=== PATIENT | female | born 1960 | race Caucasian/White ===

== ENCOUNTER 2017-02-05 20:22 | Emergency (ER) | payer OTHER ==
[~2017-02-05] VITALS: Ht 157.5 cm; Wt 129.4 kg
[~2017-02-05 20:22] MED LIST: LSN5 PO; LXP10 PO; NRN300 PO
[2017-02-05 20:34] VITALS: TEMP 36.6
[2017-02-05] MEDS ORDERED: SODIUM CHLORIDE 0.9% 1000ML 1,000 ML IV STA (20:58)
[2017-02-05 21:09] VITALS: Ht 157.5 cm; Wt 129.4 kg
[2017-02-05 21:37] VITALS: O2SAT 99
[2017-02-05 21:42] LABS: BASO % 1.1 %; BASO ABS # 0.06 K/uL (0-0.2); COMPLETE YES; HEMATOCRIT 42.8 % (37-47); IG% 0.2 %; LYMPH % 39.7 %; LYMPH ABS # 2.22 K/uL (1.2-3.4); MEAN CELL VOLUME 95.5 fL (80-100); MEAN CORPUSCULAR HEMOGLOBIN 30.8 pg (25-34); MEAN CORPUSCULAR HGB CONC 32.2 g/dl (32-36); MEAN PLATELET VOLUME 10.9 fL (7.4-10.4); MONO % 8.8 %; NEUT % 43.2 %; PLATELET COUNT 209 K/uL (130-400); RED BLOOD COUNT 4.48 M/uL (4.2-5.4); WHITE BLOOD COUNT 5.59 K/uL (4.8-10.8)
[2017-02-05] MEDS ORDERED: GABA-113 PO (21:50)
[2017-02-05] MEDS ORDERED: ESCI1TAB10 PO (21:50)
[2017-02-05] MEDS ORDERED: TRAZ50TA35 PO (21:50)
[2017-02-05 21:58] LABS: ALT/SGPT 30 U/L (12-78); BLOOD UREA NITROGEN 14 mg/dl (7-18); BUN/CREATININE RATIO 18.1 (10-20); CARBON DIOXIDE 30 mmol/L (21-32); CHLORIDE 104 mmol/L (98-107); CREATININE 0.77 mg/dl (0.60-1.20); GLUCOSE 84 mg/dl (70-99); POTASSIUM 4.1 mmol/L (3.5-5.1); SODIUM 141 mmol/L (136-145)
[2017-02-05 22:01] LABS: CALCIUM 8.6 mg/dl (8.5-10.1)
[2017-02-05 22:08] LABS: ALKALINE PHOSPHATASE 62 U/L (45-117); AST/SGOT 23 U/L (15-37)
--- NOTE | 2017-02-05 22:16 | DIAGNOSTIC IMAGING REPORT ---
HEAD CT NONCONTRAST CT DOSE: 773.57 mGy.cm HISTORY: Pt c/o head pain TECHNIQUE: Multiaxial CT images of the head were performed without the use of intravenous contrast. Comparison: None. Findings: The paranasal sinuses and mastoid air cells are clear. The calvarium and skull base are intact. The ventricles and sulci are within normal limits. There is no mass, hematoma, midline shift, or acute infarct. Impression: No acute intracranial abnormality. Electronically signed by: Stuart Augustin M.D. 02/05/2017 10:15 PM Dictated Date/Time: 02/05/2017 10:14 PM
[2017-02-05 22:49] VITALS: BP 174/82; PULSE 60; O2SAT 98
--- NOTE | 2017-02-05 23:28 | EMERGENCY ROOM VISIT NOTE ---
History Report prepared by [place]: Joann Tamez Under the Supervision of: Dr. Geovany Perez M.D. First contact with patient: 20:44 Chief Complaint: HEAD PAIN Stated Complaint: PRESSURE IN HEAD BEHIND EYES, EXHAUSTION, TINGLING History of Present Illness The patient is a 56 year old female who presents to the Emergency Room with complaints of persistent head pain starting 1 hour ago. She had been feeling well lately. One hour ago, she was sitting reading a magazine when she started feeling exhausted to the point of being unable to move. She also started feeling a pressure in her head around her mosque and eyes. She reports nausea. Her face around her eyes and nose and her feet started tingling. The tingling in her feet has resolved, but her face still tingles. She denies any abdominal pain. She denies any history of migraines. She has had an episode of high blood pressure in the past. Source of History: patient Onset: 1 hour ago Position: head Quality: pressure Timing: other (persistent) Associated Symptoms: + nausea, + fatigue, No abdominal pain Note: Pt reports tingling in her feet and face. Review of Systems See HPI for pertinent positives & negatives. A total of 10 systems reviewed and were otherwise negative. Past Medical & Surgical Medical Problems: (1) Hypertensive urgency (2) Obesity (3) Osteoarthritis (4) Peripheral neuropathy Surgical Problems: (1) No pertinent past surgical history Family History Asthma SISTER Cancer GRANDMOTHER (colon CA) Diabetes mellitus MOTHER GRANDFATHER Gallbladder disease Heart disease Hypertension MOTHER GRANDFATHER GRANDMOTHER Stroke MOTHER Social History Smoking Status: Never Smoker Marital Status: single Occupation Status: employed Current/Historical Medications Scheduled Escitalopram Oxalate (Lexapro), 20 MG PO HS Gabapentin (Neurontin), 600 MG PO TID Trazodone Hcl (Trazodone), 50 MG PO HS Allergies Coded Allergies: Thioamides (Verified Allergy, Intermediate, Rash, 02/05/17) Codeine (Verified Allergy, Mild, 08/08/16) Penicillins (Verified Allergy, Mild, 08/08/16) Morphine (Verified Adverse Reaction, Mild, nausea, 08/08/16) Physical Exam Vital Signs Date Time Temp Pulse Resp B/P (MAP) Pulse Ox O2 Delivery O2 Flow Rate FiO2 02/05/17 22:49 60 18 174/82 98 Room Air 02/05/17 22:26 52 152/95 60 168/100 60 174/82 02/05/17 21:37 99 Room Air 02/05/17 21:37 60 21 142/84 97 Room Air 02/05/17 21:32 95 Room Air 02/05/17 21:19 67 02/05/17 20:34 36.6 72 18 158/98 94 Room Air Physical Exam GENERAL: Patient is a healthy-appearing well-nourished, hyperventilating HEAD: Normocephalic atraumatic EYES: Ocular movements intact pupils equal and react to light OROPHARYNX mucous membranes are moist no exudates present no erythema or edema present NECK: Supple no nuchal rigidity CHEST: Good equal expansion LUNGS: Clear and equal to auscultation CARDIAC: Normal S1 and S2 ABDOMEN: Soft nontender no guarding BACK: No CVA tenderness EXTREMITIES: No pain upon palpation normal muscle strength in all groups no clubbing cyanosis or edema NEURO: Patient is following commands is answering questions appropriately. Alert and oriented x3 Cranial Nerves 2-12 grossly intact Medical Decision & Procedures ER Provider Diagnostic Interpretation: Radiology results as stated below per my review and radiologist interpretation: HEAD CT NONCONTRAST CT DOSE: 773.57 mGy.cm HISTORY: Pt c/o head pain TECHNIQUE: Multiaxial CT images of the head were performed without the use of intravenous contrast. Comparison: None. Findings: The paranasal sinuses and mastoid air cells are clear. The calvarium and skull base are intact. The ventricles and sulci are within normal limits. There is no mass, hematoma, midline shift, or acute infarct. Impression: No acute intracranial abnormality. Electronically signed by: Stuart Augustin M.D. 02/05/2017 10:15 PM Dictated Date/Time: 02/05/2017 10:14 PM Laboratory Results 02/05/17 21:20 Red Blood Count 4.48, Mean Corpuscular Volume 95.5, Mean Corpuscular Hemoglobin 30.8, Mean Corpuscular Hemoglobin Concent 32.2, Mean Platelet Volume 10.9, Neutrophils (%) (Auto) 43.2, Lymphocytes (%) (Auto) 39.7, Monocytes (%) (Auto) 8.8, Eosinophils (%) (Auto) 7.0, Basophils (%) (Auto) 1.1, Neutrophils # (Auto) 2.42, Lymphocytes # (Auto) 2.22, Monocytes # (Auto) 0.49, Eosinophils # (Auto) 0.39, Basophils # (Auto) 0.06 02/05/17 21:20 Test 02/05/17 21:20 02/05/17 21:35 White Blood Count 5.59 K/uL (4.8-10.8) Red Blood Count 4.48 M/uL (4.2-5.4) Hemoglobin 13.8 g/dL (12.0-16.0) Hematocrit 42.8 % (37-47) Mean Corpuscular Volume 95.5 fL (80-100) Mean Corpuscular Hemoglobin 30.8 pg (25-34) Mean Corpuscular Hemoglobin Concent 32.2 g/dl (32-36) Platelet Count 209 K/uL (130-400) Mean Platelet Volume 10.9 fL (7.4-10.4) Neutrophils (%) (Auto) 43.2 % Lymphocytes (%) (Auto) 39.7 % Monocytes (%) (Auto) 8.8 % Eosinophils (%) (Auto) 7.0 % Basophils (%) (Auto) 1.1 % Neutrophils # (Auto) 2.42 K/uL (1.4-6.5) Lymphocytes # (Auto) 2.22 K/uL (1.2-3.4) Monocytes # (Auto) 0.49 K/uL (0.11-0.59) Eosinophils # (Auto) 0.39 K/uL (0-0.5) Basophils # (Auto) 0.06 K/uL (0-0.2) RDW Standard Deviation 47.7 fL (36.4-46.3) RDW Coefficient of Variation 13.7 % (11.5-14.5) Immature Granulocyte % (Auto) 0.2 % Immature Granulocyte # (Auto) 0.01 K/uL (0.00-0.02) Anion Gap 7.0 mmol/L (3-11) Est Creatinine Clear Calc Drug Dose 106.6 ml/min Estimated GFR () 100.7 Estimated GFR (Non- 86.9 BUN/Creatinine Ratio 18.1 (10-20) Calcium Level 8.6 mg/dl (8.5-10.1) Total Bilirubin 0.3 mg/dl (0.2-1) Direct Bilirubin < 0.1 mg/dl (0-0.2) Aspartate Amino Transf (AST/SGOT) 23 U/L (15-37) Alanine Aminotransferase (ALT/SGPT) 30 U/L (12-78) Alkaline Phosphatase 62 U/L (45-117) Total Protein 7.0 gm/dl (6.4-8.2) Albumin 3.4 gm/dl (3.4-5.0) Thyroid Stimulating Hormone (TSH) 1.350 uIu/ml (0.300-4.500) Bedside Glucose 92 mg/dl (70-90) Labs reviewed by ED physician. Medications Administered Medications (Trade) Dose Ordered Sig/Angela Route Start Time Stop Time Status Last Admin Dose Admin Sodium Chloride 1,000 ml @ 999 mls/hr Q1H1M STAT IV 02/05/17 20:58 02/05/17 21:58 DC 02/05/17 20:40 999 MLS/HR ECG Indication: weakness Rate (beats per minute): 62 Rhythm: normal sinus Findings: no acute ischemic change, no ectopy ED Course 2045: Past medical records reviewed. The patient was evaluated in room A4B. A complete history and physical examination was performed. 2057: NSS 1000 ml @ 999 mls/hr IV. 2302: Upon reexamination the patient is resting comfortably. I discussed results and treatment plan with the patient. She verbalizes agreement and understanding. The patient is ready for discharge. Medical Decision Differential diagnosis: Etiologies such as infections, reactive airway disease, pneumonia, pneumothorax , COPD, CHF, cardiac ischemia, pulmonary embolism, musculoskeletal, gastrointestinal, as well as others were entertained. Medication Reconciliation: I attest that I have personally reviewed the patient' s current medication list Blood Pressure Screening: Patient was found to have an elevated blood pressure and was referred to their primary care doctor for recheck and further treatment This is a 56-year-old female who had sudden onset of headache with aura. The patient does not have a history of migraines in the past. She is also complaining of bilateral leg numbness which I believe is from hyperventilation. The patient was content in the emergency department and given a normal saline bolus. She has a normal CAT scan of the head as well as normal CBC. I do believe that the patient is well enough to be discharged home for follow-up with neurology. Patient was in agreement with treatment plan. Impression Primary Impression: Migraine Scribe Attestation The scribe's documentation has been prepared under my direction and personally reviewed by me in its entirety. I confirm that the note above accurately reflects all work, treatment, procedures, and medical decision making performed by me. Departure Information Dispostion Home / Self-Care Referrals Luis Eduardo Armstrong III, M.D. (PCP) Forms HOME CARE DOCUMENTATION FORM, IMPORTANT VISIT INFORMATION, WORK / SCHOOL INSTRUCTIONS Patient Instructions Headache Migraine Triggers Prevent, Headaches Migraine and Tension, Hypertension Control, Migraine Stages Tx, My [facility] Additional Instructions You were found to have an elevated blood pressure today (>120 sytolic or >90 diastolic). Per medicare guidelines, you need to follow up with this blood pressure screening with your Primary Care Physician (PCP). For a new PCP call [phone]. Follow up with DR Patel's office You have been examined and treated today on an emergency basis only. This is not a substitute for, or an effort to provide, complete comprehensive medical care. It is impossible to recognize and treat all injuries or illnesses in a single emergency department visit. It is therefore important that you follow up closely with Dr Armstrong. Call as soon as possible for an appointment. Thank you for your time and consideration. I look forward to speaking with you again soon. Please don't hesitate to call us if you have any questions. Problem Qualifiers Primary Impression: Migraine Migraine type: with aura Status migrainosus presence: without status migrainosus Intractability: not intractable Qualified Codes: G43.109 - Migraine with aura, not intractable, without status migrainosus
== END 2017-02-05 23:24 | disposition home or self-care (01) ==
LOC: C.EDB 20:25 → C.EDA 23:24
DX: G43.109 Migraine with aura, not intractable, without status migrainosus (principal); R53.83 Other fatigue; R11.0 Nausea; R20.2 Paresthesia of skin; I10 Essential (primary) hypertension; M19.90 Unspecified osteoarthritis, unspecified site; Z79.899 Other long term (current) drug therapy; Z82.3 Family history of stroke; Z82.49 Family history of ischemic heart disease and other diseases of the circulatory system; Z82.5 Family history of asthma and other chronic lower respiratory diseases; Z83.3 Family history of diabetes mellitus; Z83.79 Family history of other diseases of the digestive system

== ENCOUNTER 2021-10-17 13:14 | Inpatient (IN) ==
[2021-10-17 14:46] LABS: Basophils # (auto) 0.04 K/uL (0-0.2); Basophils % (auto) 0.5 %; Eosinophils # (auto) 0.58 K/uL (0-0.5); Eosinophils % (auto) 7.6 %; Hemoglobin 13.1 g/dL (12.0-16.0); Immature Granulocytes # (auto) 0.01 K/uL (0.00-0.02); Immature Granulocytes % (auto) 0.1 %; Lymphocytes # (auto) 1.55 K/uL (1.2-3.4); Lymphocytes % (auto) 20.3 %; Mean Corpuscular Hemoglobin 28.6 pg (25-34); Mean Corpuscular Hgb Conc 31.2 g/dL (32-36); Mean Corpuscular Volume 91.7 fL (80-100); Mean Platelet Volume 11.2 fL (7.4-10.4); Monocytes # (auto) 0.61 K/uL (0.11-0.59); Neutrophils # (auto) 4.85 K/uL (1.4-6.5); Neutrophils % (auto) 63.5 %; Platelet Count 228 K/uL (130-400); RDW Coefficient of Variation 15.1 % (11.5-14.5); Red Blood Count 4.58 M/uL (4.2-5.4); White Blood Count 7.64 K/uL (4.8-10.8)
[2021-10-17 14:59] LABS: D Dimer 1210 ug/L FEU (0-500)
[2021-10-17 15:09] LABS: Alanine Aminotransferase 17 U/L (7-52); Albumin Globulin Ratio 1.4 (0.9-2); Alkaline Phosphatase 62 U/L (34-104); Anion Gap 6 (3-11); Aspartate Aminotransferase 22 U/L (13-39); BUN Creatinine Ratio 30.8 (10-20); Bilirubin,Total 0.7 mg/dl (0.2-1.0); Blood Urea Nitrogen 20 mg/dl (6-23); Calcium 8.7 mg/dl (8.5-10.1); Carbon Dioxide 32 mmol/L (21-32); Chloride 102 mmol/L (98-107); Creatinine Clr Calc Pharmacy 122.5 ml/min; Est GFR (African American) 111.8 ml/min; Est GFR (Non-African American) 96.5 ml/min; Globulin 2.8 gm/dl (2.5-4.0); Glucose 92 mg/dl (70-99(Fasting)); Magnesium 2.1 mg/dl (1.7-2.4); Potassium 3.8 mmol/L (3.5-5.1); Sodium 140 mmol/L (136-145); Total Protein 6.8 gm/dl (6.0-8.3); Troponin I < 0.03 ng/ml (0-0.04)
--- NOTE | 2021-10-17 15:45 | Emergency Department Note ---
History of Present Illness General Chief complaint: Shortness of Breath/Dyspnea Stated complaint: SOB,SORETHROAT,COUGH,BODYACHES,VERY TIRED Time Seen by Provider: 10/17/21 13:37 Source: patient Mode of arrival: ambulatory Limitations: no limitations History of Present Illness Provider complaint: Shortness of breath, chest pain, leg swelling Onset (ago): day(s) 4 Maximum Pain Intensity: 2 Associated symptoms: + chest pain, + cough, + fever/chills, + headaches, + malaise, + nausea/vomiting and + shortness of breath; no loss of appetite or no syncope This is a 61-year-old female who was referred by her PCP to the emergency room for additional testing who presents complaining of shortness of breath, chest pain, and leg swelling. Patient states she has been more short of breath and more fatigued over the course of the last 2 to 3 weeks. She states over the last 2 to 3 days she noticed worsening left lower extremity swelling, increased shortness of breath particular with exertion, and developed accompanying chest pain/pressure. Patient denies any prior pulmonary history including asthma or COPD, no history of tobacco abuse. Patient denies any cardiac history. She denies any change in medications. Patient states she does have some chronic lower extremity edema due to her body habitus, states in the last few days she noticed that the left lower extremity was worse. She denies any trauma or injury. Patient states she has had intermittent fevers, and a intermittent mild cough. Patient denies any sick contacts. She states when she presented to her family doctor's office, they were concerned for possible DVT or PE and also concern for Covid and referred her to the emergency room for additional testing. Patient initially seen in the waiting room as there were no available beds in the main ER. Pt seen during a time of high acuity and national emergency pandemic while wearing PPE. Home Medications Medication Instructions Recorded Confirmed Type baclofen 10 mg tablet 10 mg PO BID 08/18/18 10/17/21 History furosemide 20 mg tablet 20 mg PO QAM 08/18/18 10/17/21 History ondansetron 4 mg disintegrating 4 mg PO TID PRN 08/18/18 10/17/21 History tablet trazodone 50 mg tablet 50 mg PO HS 08/18/18 10/17/21 History brimonidine 0.2 % eye drops 1 drp OPB BID 03/03/20 02/17/22 History celecoxib 100 mg capsule 100 mg PO QAM 11/01/19 10/17/21 History dorzolamide 22.3 mg-timolol 6.8 1 drp OPB BID 11/01/19 10/17/21 History mg/mL eye drops duloxetine 60 mg capsule,delayed 60 mg PO QAM 11/01/19 10/17/21 History release latanoprost 0.005 % eye drops 1 drp OPB HS 11/01/19 10/17/21 History omeprazole 20 mg capsule,delayed 20 mg PO DAILY 11/01/19 10/17/21 History release pregabalin 50 mg capsule (Lyrica) 50 mg PO BID 11/01/19 10/17/21 History acetaminophen 650 mg 1,300 mg PO Q8H PRN 10/17/21 10/17/21 History tablet,extended release aspirin 81 mg tablet,delayed 81 mg PO BID 10/17/21 10/17/21 History release (Aspirin Low Dose) Allergies Allergy/AdvReac Type Severity Reaction Status Date / Time Penicillins Allergy Intermediate Difficulty Verified 10/17/21 15:59 Breathing codeine Allergy Mild NAUSEATED Verified 10/17/21 15:59 morphine AdvReac Mild nausea Verified 10/17/21 15:59 Thioamides Allergy Intermediate Rash Uncoded 10/17/21 15:59 Past Med/Surg History Medical History (Updated 10/17/21 @ 19:01 by Amy Vega DO) Anxiety Cardiac murmur Depression Eye pressure Hypertension Hyperthyroidism HISTORY OF Migraine Osteoarthritis Peripheral neuropathy Transient ischemic attack (TIA) "I THINK I HAVE HAD MINI STROKES BECAUSE I HAVE MEMORY PROBLEMS" LAST EPISODE 6 MONTHS AGO (NOT DX) Surgical History Family history of reaction to anesthesia PONV, SLOW TO WAKE UP No significant past surgical history Family History Mother Family history of diabetes mellitus Grandmother (Maternal) Family hx of colon cancer Social History Smoking Status: Never smoker Second Hand Exposure: Yes; Hx Alcohol Use: No Hx Substance Use: No Preferred Language: Welsh Communication Ability: Effective Applications Architect Required: No Beliefs That Will Affect Care: None marital status: Single Current Living Situation: Alone Current Living Situation Comment: ROOMMATE Feels Safe at Home: Yes Safety Concerns: Feels Safe At This Time Assistive Devices: None Assistive Devices Comment: does not use CPAP Review of Systems A total of 10 systems reviewed and were otherwise negative All systems reviewed & are unremarkable except as noted in HPI & below Physical Exam Vital Signs Vital Signs - 24 hr 10/17/21 13:15 10/17/21 15:52 10/17/21 16:17 Temperature 36.7 C Temperature Source Temporal Artery Scan Pulse Rate 76 Pulse Rate [Exercises] Pulse Rate [Recovery] Pulse Rate [Right Finger] 68 Respiratory Rate 20 22 Respiratory Rate [Exercises] Respiratory Rate [Recovery] Respiratory Effort / Characteristics Non-Labored Spontaneous Non-Labored Spontaneous Respiratory Depth Normal Normal Respiratory Pattern Regular Blood Pressure 151/96 H Blood Pressure [Right Arm] 154/99 H Blood Pressure Mean 114 Blood Pressure Mean [Right Arm] 117 Pulse Oximetry 95 91 Pulse Oximetry [Exercises] Pulse Oximetry [Recovery] Oxygen Delivery Method Room Air Room Air Room Air Sepsis Recent Fever Within 48 Hours No Sepsis New/Unexplained Change in Mental Status No Sepsis Action Taken by Nursing No Action Required 10/17/21 18:53 Temperature Temperature Source Pulse Rate Pulse Rate [Exercises] 88 Pulse Rate [Recovery] 89 Pulse Rate [Right Finger] Respiratory Rate Respiratory Rate [Exercises] 20 Respiratory Rate [Recovery] 22 Respiratory Effort / Characteristics Respiratory Depth Respiratory Pattern Blood Pressure Blood Pressure [Right Arm] Blood Pressure Mean Blood Pressure Mean [Right Arm] Pulse Oximetry Pulse Oximetry [Exercises] 93 Pulse Oximetry [Recovery] 86 L Oxygen Delivery Method Room Air Sepsis Recent Fever Within 48 Hours Sepsis New/Unexplained Change in Mental Status Sepsis Action Taken by Nursing GENERAL: alert, well appearing, well nourished, no distress, non-toxic EYE EXAM: normal conjunctiva, PERRL and EOM's grossly intact OROPHARYNX: no exudate, no erythema, lips, buccal mucosa, and tongue normal and mucous membranes are moist NECK: supple, no nuchal rigidity, no adenopathy, non-tender LUNGS: Clear to auscultation. Normal chest wall mechanics, no w/r/r, no tachypnea, no retractions, no increased work of breathing HEART: no murmurs, S1 normal and S2 normal ABDOMEN: abdomen soft, non-tender, normo-active bowel sounds, no masses, no rebound or guarding. BACK: Back is symmetrical on inspection and there is no deformity, no midline tenderness, no CVA tenderness. SKIN: no rashes and no bruising UPPER EXTREMITIES: upper extremities are grossly normal. FROM, nml pulses b/l. LOWER EXTREMITIES: 1+ b/l L>R pitting edema. FROM, nml pulses b/l. Increased erythema noted to distal left lower extremity with small healing wound on the distal anterior aspect. No significant increased warmth or tenderness. NEURO EXAM: Normal sensorium, cranial nerves II-XII grossly intact, normal speech, no gross weakness of arms, no gross weakness of legs. Gross sensation intact. Course Course 1751: Patient updated on results. Will start on oral antibiotics and perform ambulatory pulse ox. 1850: On attempts at sitting up and walking into the bathroom, patient's oxygenation dropped to 85% and she appeared markedly dyspneic and tachypneic. Administered Medications Acetaminophen (Acetaminophen 325 Mg Tab) 650 mg PO Q4H PRN PRN Reason: Pain or Fever Stop: 11/16/21 23:35 Last Admin: 10/18/21 20:17 Dose: 650 mg Documented by: [id number] Admin: 10/18/21 16:46 Dose: 650 mg Documented by: [id number] Admin: 10/18/21 01:32 Dose: 650 mg Documented by: [id number] Aspirin (Aspirin 81 Mg Ectab) 81 mg PO BID [facility] Stop: 11/16/21 23:35 Last Admin: 10/18/21 20:13 Dose: 81 mg Documented by: [id number] Admin: 10/18/21 07:41 Dose: 81 mg Documented by: [id number] Admin: 10/18/21 01:25 Dose: 81 mg Documented by: [id number] Baclofen (Baclofen 10 Mg Tab) 10 mg PO BID [facility] Stop: 11/16/21 23:35 Last Admin: 10/18/21 20:10 Dose: 10 mg Documented by: [id number] Admin: 10/18/21 07:41 Dose: 10 mg Documented by: [id number] Admin: 10/18/21 01:25 Dose: 10 mg Documented by: [id number] Brimonidine Tartrate (Brimonidine Tartrate 0.2% 5ml) 1 drops OPB BID ANA Stop: 11/16/21 23:34 Last Admin: 10/18/21 20:11 Dose: 1 drops Documented by: [id number] Admin: 10/18/21 07:40 Dose: 1 drops Documented by: [id number] Admin: 10/18/21 01:24 Dose: 1 drops Documented by: [id number] Dorzolamide/Timolol (Dorzolamide/Timolol 22.3/6.8mg/Ml 10 Ml Btl) 1 drops OPB BID ANA Stop: 11/16/21 23:35 Last Admin: 10/18/21 20:11 Dose: 1 drops Documented by: [id number] Admin: 10/18/21 07:40 Dose: 1 drops Documented by: [id number] Admin: 10/18/21 01:25 Dose: 1 drops Documented by: [id number] Doxycycline Hyclate (Doxycycline Hyclate 100 Mg Cap) 100 mg PO BID ANA Stop: 10/28/21 12:14 Last Admin: 10/18/21 20:13 Dose: 100 mg Documented by: [id number] Admin: 10/18/21 13:12 Dose: 100 mg Documented by: [id number] Duloxetine HCl (Duloxetine Hcl 60 Mg Cap) 60 mg PO QAM ANA Stop: 11/17/21 08:59 Last Admin: 10/18/21 07:41 Dose: 60 mg Documented by: [id number] Enoxaparin Sodium (Enoxaparin Inj 40 Mg/0.4 Ml Syr) 40 mg SQ Q12H [facility] Stop: 11/17/21 00:00 Last Admin: 10/18/21 23:10 Dose: 40 mg Documented by: [id number] Admin: 10/18/21 12:16 Dose: 40 mg Documented by: [id number] Admin: 10/18/21 01:27 Dose: 40 mg Documented by: [id number] Furosemide (Furosemide 20 Mg Tab) 20 mg PO QAM ANA Stop: 11/17/21 08:59 Last Admin: 10/18/21 07:41 Dose: 20 mg Documented by: [id number] Clindamycin Phosphate 600 mg/ (Dextrose) 54 mls @ 100 mls/hr IV Q8H ANA Stop: 10/24/21 20:15 Last Admin: 10/19/21 05:17 Dose: 100 mls/hr Documented by: [id number] Infusion: 10/18/21 20:45 Dose: 0 mls/hr Documented by: [id number] Admin: 10/18/21 20:10 Dose: 100 mls/hr Documented by: [id number] Infusion: 10/18/21 12:53 Dose: 0 mls/hr Documented by: [id number] Admin: 10/18/21 12:16 Dose: 100 mls/hr Documented by: [id number] Infusion: 10/18/21 05:39 Dose: 0 mls/hr Documented by: [id number] Admin: 10/18/21 05:06 Dose: 100 mls/hr Documented by: [id number] Infusion: 10/17/21 21:14 Dose: 0 mls/hr Documented by: [id number] Admin: 10/17/21 20:38 Dose: 100 mls/hr Documented by: [id number] Ipratropium [place] (Ipratropium [place] Neb Soln 0.02% 2.5 Ml Vial) 0.5 mg INH Q6R ANA Stop: 11/17/21 11:59 Last Admin: 10/19/21 01:28 Dose: Not Given Documented by: [id number] Admin: 10/18/21 19:18 Dose: 0.5 mg Documented by: [id number] Admin: 10/18/21 12:44 Dose: 0.5 mg Documented by: [id number] Latanoprost (Latanoprost 0.005% Op Soln 2.5 Ml Btl) 1 drops OPB HS ANA Stop: 11/16/21 23:35 Last Admin: 10/18/21 20:11 Dose: 1 drops Documented by: [id number] Admin: 10/18/21 01:26 Dose: 1 drops Documented by: [id number] Levalbuterol HCl (Levalbuterol 1.25mg/0.5ml Neb) 1.25 mg INH Q6R ANA Stop: 11/17/21 11:59 Last Admin: 10/19/21 01:29 Dose: Not Given Documented by: [id number] Admin: 10/18/21 19:18 Dose: 1.25 mg Documented by: [id number] Admin: 10/18/21 12:44 Dose: 1.25 mg Documented by: [id number] Pantoprazole Sodium (Pantoprazole 40 Mg Tab) 40 mg PO DAILY ANA Stop: 11/17/21 08:59 Last Admin: 10/18/21 07:41 Dose: 40 mg Documented by: [id number] Prednisone (Prednisone 20 Mg Tab) 40 mg PO DAILY ANA Stop: 11/17/21 12:14 Last Admin: 10/18/21 13:11 Dose: 40 mg Documented by: [id number] Pregabalin (Pregabalin 50 Mg Cap) 50 mg PO BID ANA Stop: 11/16/21 23:35 Last Admin: 10/18/21 20:11 Dose: 50 mg Documented by: [id number] Admin: 10/18/21 07:41 Dose: 50 mg Documented by: [id number] Admin: 10/18/21 01:26 Dose: 50 mg Documented by: [id number] Trazodone HCl (Trazodone Hcl 50 Mg Tab) 50 mg PO HS ANA Stop: 11/16/21 23:35 Last Admin: 10/18/21 20:11 Dose: 50 mg Documented by: [id number] Admin: 10/18/21 01:27 Dose: 50 mg Documented by: [id number] Discontinued Medications Ioversol (Optiray 320 125ml) 117 ml IV ONCE ONE Stop: 10/17/21 16:10 Last Admin: 10/17/21 16:12 Dose: 117 ml Documented by: [id number] Trimethoprim/Sulfamethoxazole (Sulfamethoxazole/Trimethoprim Ds 800/160mg Tab) 1 tab PO NOW ONE Stop: 10/17/21 17:41 Last Admin: 10/17/21 19:33 Dose: 1 tab Documented by: [id number] Medical Decision Making Differential Diagnosis Differential diagnoses includes but is not limited to pneumonia, bronchitis, COPD/Asthma exacerbation, pneumothorax, pulmonary embolism, congestive heart failure, acute coronary syndrome Medical Records Attestation: I reviewed the patient's medical records. Home Medications Current Medication List: was personally reviewed by me Laboratory Data Attestation: I reviewed the patient's lab results. Result diagrams: 10/18/21 05:46 10/18/21 07:14 Lab Results 10/17/21 10/17/21 10/17/21 Range/Units 14:24 14:24 14:24 WBC 7.64 (4.8-10.8) K/uL RBC 4.58 (4.2-5.4) M/uL Hgb 13.1 (12.0-16.0) g/dL Hct 42.0 (37-47) % MCV 91.7 (80-100) fL MCH 28.6 (25-34) pg MCHC 31.2 L (32-36) g/dL RDW Std Deviation 51.0 H (36.4-46.3) fL RDW Coeff of Allison 15.1 H (11.5-14.5) % Plt Count 228 (130-400) K/uL MPV 11.2 H (7.4-10.4) fL Immature Gran % (Auto) 0.1 % Neut % (Auto) 63.5 % Lymph % (Auto) 20.3 % [place] % (Auto) 8.0 % Eos % (Auto) 7.6 % Baso % (Auto) 0.5 % Neut # (Auto) 4.85 (1.4-6.5) K/uL Lymph # (Auto) 1.55 (1.2-3.4) K/uL [place] # (Auto) 0.61 H (0.11-0.59) K/uL Eos # (Auto) 0.58 H (0-0.5) K/uL Baso # (Auto) 0.04 (0-0.2) K/uL Immature Gran # (Auto) 0.01 (0.00-0.02) K/uL D-Dimer 1210 H* (0-500) ug/L FEU Sodium 140 (136-145) mmol/L Potassium 3.8 (3.5-5.1) mmol/L Chloride 102 (98-107) mmol/L Carbon Dioxide 32 (21-32) mmol/L Anion Gap 6 (3-11) BUN 20 (6-23) mg/dl Creatinine 0.65 (0.6-1.2) mg/dl Est Cr Clr Drug Dosing 122.5 ml/min Est GFR ( Amer) 111.8 ml/min Est GFR (Non-Af Amer) 96.5 ml/min BUN/Creatinine Ratio 30.8 H (10-20) Glucose 92 (70-99(Fasting)) mg/dl Calcium 8.7 (8.5-10.1) mg/dl Magnesium 2.1 (1.7-2.4) mg/dl Total Bilirubin 0.7 (0.2-1.0) mg/dl AST 22 (13-39) U/L ALT 17 (7-52) U/L Alkaline Phosphatase 62 (34-104) U/L Troponin I < 0.03 (0-0.04) ng/ml Total Protein 6.8 (6.0-8.3) gm/dl Albumin 4.0 (3.4-5.0) gm/dl Globulin 2.8 (2.5-4.0) gm/dl Albumin/Globulin Ratio 1.4 (0.9-2) TSH (0.300-4.500) uIu/ml SARS-CoV-2 (PCR) (Negative) Influenza Type A (PCR) (Neg) Influenza Type B (PCR) (Neg) RSV (RT-PCR) (Neg) 10/17/21 10/17/21 Range/Units 14:24 15:50 WBC (4.8-10.8) K/uL RBC (4.2-5.4) M/uL Hgb (12.0-16.0) g/dL Hct (37-47) % MCV (80-100) fL MCH (25-34) pg MCHC (32-36) g/dL RDW Std Deviation (36.4-46.3) fL RDW Coeff of Allison (11.5-14.5) % Plt Count (130-400) K/uL MPV (7.4-10.4) fL Immature Gran % (Auto) % Neut % (Auto) % Lymph % (Auto) % [place] % (Auto) % Eos % (Auto) % Baso % (Auto) % Neut # (Auto) (1.4-6.5) K/uL Lymph # (Auto) (1.2-3.4) K/uL [place] # (Auto) (0.11-0.59) K/uL Eos # (Auto) (0-0.5) K/uL Baso # (Auto) (0-0.2) K/uL Immature Gran # (Auto) (0.00-0.02) K/uL D-Dimer (0-500) ug/L FEU Sodium (136-145) mmol/L Potassium (3.5-5.1) mmol/L Chloride (98-107) mmol/L Carbon Dioxide (21-32) mmol/L Anion Gap (3-11) BUN (6-23) mg/dl Creatinine (0.6-1.2) mg/dl Est Cr Clr Drug Dosing ml/min Est GFR ( Amer) ml/min Est GFR (Non-Af Amer) ml/min BUN/Creatinine Ratio (10-20) Glucose (70-99(Fasting)) mg/dl Calcium (8.5-10.1) mg/dl Magnesium (1.7-2.4) mg/dl Total Bilirubin (0.2-1.0) mg/dl AST (13-39) U/L ALT (7-52) U/L Alkaline Phosphatase (34-104) U/L Troponin I (0-0.04) ng/ml Total Protein (6.0-8.3) gm/dl Albumin (3.4-5.0) gm/dl Globulin (2.5-4.0) gm/dl Albumin/Globulin Ratio (0.9-2) TSH 1.593 (0.300-4.500) uIu/ml SARS-CoV-2 (PCR) NEGATIVE (Negative) Influenza Type A (PCR) Negative (Neg) Influenza Type B (PCR) Negative (Neg) RSV (RT-PCR) Negative (Neg) Imaging Data Radiologist's Impression: Venous Doppler Study 10/17/21 14:00 ULTRASOUND LEFT LOWER EXTREMITY VENOUS CLINICAL HISTORY: Left leg pain and swelling. COMPARISON STUDY: Bilateral lower extremity venous ultrasound dated 02/07/2007. TECHNIQUE: Real-time, grayscale, and color Doppler sonography of the deep veins of the left lower extremity was performed from the inguinal crease to the calf. Compression and augmentation were utilized. FINDINGS: There is no sonographic evidence of deep venous thrombosis identified in the left lower extremity. The common femoral, superficial femoral, and popliteal veins are patent and normally compressible. The greater saphenous vein and the profunda femoris vein at the junction with the common femoral vein are clear. The visualized calf veins are patent. Soft tissue edema is noted in the calf. IMPRESSION: There is no sonographic evidence of deep venous thrombosis identified in the left lower extremity. ACT 112: Negative or not required by law. Electronically signed by: Kenny Ware M.D. 10/17/2021 5:22 PM Chest CTA 10/17/21 15:06 CT angio chest PE protocol CLINICAL HISTORY: PE TECHNIQUE: Multidetector row helical CT of the chest was performed with angiographic protocol. Coronal and sagittal reformations were obtained. Coronal and sagittal MIPS were obtained from the axial data set and were submitted for review. Automated dose lowering techniques and/or adjustment according to patie nt size were utilized for this exam. Comparison: None available at the time of this dictation. FINDINGS: Lungs and pleura: Normal. Heart and pericardium: Heart size is normal. No pericardial effusion. Vessels: No evidence of pulmonary embolism. Mediastinum and saadia: Unremarkable. Chest wall and lower neck: Unremarkable. Abdomen: Unremarkable. Bones: Unremarkable. IMPRESSION: No evidence of pulmonary embolism. ACT 112: Negative or not required by law. Electronically signed by: Dashawn Hansen M.D. 10/17/2021 4:19 PM ECG Data Attestation: I personally reviewed and interpreted this ECG as follows: Indication: + SOB/dyspnea Rate (beats per minute): 61 Rhythm: + normal sinus ECG Intervals/blocks: + Normal QRS and + Normal QT ECG [place]: + Normal ECG ST segments: + Normal ST segments MDM Narrative This is a 61-year-old female who was sent to the emergency department by her PCP due to concern for leg swelling, and shortness of breath. Patient states family doctor was most concerned about Covid versus DVT/PE. Patient initially seen in waiting room area is over no available beds. Labs are drawn and sent, patient sent for CT imaging and ultimately for lower extremity Doppler. Patient was noted to have a left lower extremity mild cellulitis. Patient started on Bactrim in anticipation of possible discharge and outpatient follow-up. Labs are reassuring other than the elevated D-dimer, however both Doppler and CT were negative for clot. Patient's nasal swab negative for Covid, influenza, and RSV. No evidence of focal infiltrate, pleural effusion, or CHF noted on CT. Patient is well-appearing at rest and is hemodynamically stable, with any movement she was noted to become tachypneic and dyspneic. Was an ambulatory pulse ox trial, patient quickly dropped her oxygen saturations 85% with increased respiratory distress. Patient with no significant pulmonary or cardiac history. Given concern for her symptoms, I discussed with her additional inpatient evaluation and monitoring, she verbalized understanding was in agreement. It is unclear if patient has could have occult URI, pulmonary hypertension, or evolving CHF. An order was placed for continuous cardiac monitoring. The monitor shows a rate of _80__ with _normal sinus_ rhythm. Impression & Plan Dyspnea, Obesity, Hypoxia, Cellulitis Discharge Plan Visit Data Chief Complaint: Shortness of Breath/Dyspnea Stated Complaint: SOB,SORETHROAT,COUGH,BODYACHES,VERY TIRED ED Provider: Amy Vega Discharge Problem: Dyspnea, Obesity, Hypoxia, Cellulitis Patient Disposition: Admitted As Inpatient Discharge Instructions Interventions: ED Discharge Assessment Last Done: 10/17/21 22:41 Discharge Problem: Dyspnea Qualifiers: Dyspnea type: dyspnea on exertion Qualified Code(s): R06.00 - Dyspnea, unspecified Obesity Qualifiers: Obesity type: unspecified obesity type Obesity classification: unspecified obe sity classification Serious obesity comorbidity presence: unspecified whether serious comorbidity present Qualified Code(s): E66.9 - Obesity, unspecified Cellulitis Qualifiers: Site of cellulitis: extremity Site of cellulitis of extremity: lower extremity Laterality: left Qualified Code(s): L03.116 - Cellulitis of left lower limb
[2021-10-17] MEDS ORDERED: OPTIRAY 320 125ml IV ONE (16:09)
--- NOTE | 2021-10-17 16:21 | CT Scan Report ---
CT angio chest PE protocol CLINICAL HISTORY: PE TECHNIQUE: Multidetector row helical CT of the chest was performed with angiographic protocol. Amaro l and sagittal reformations were obtained. Coronal and sagittal MIPS were obtained from the axial kiersten a set and were submitted for review. Automated dose lowering techniques and/or adjustment according to patient size were utilized for this exam. Comparison: None available at the time of this dictation. FINDINGS: Lungs and pleura: Normal. Heart and pericardium: Heart size is normal. No pericardial effusion. Vessels: No evidence of pulmonary embolism. Mediastinum and saadia: Unremarkable. Chest wall and lower neck: Unremarkable. Abdomen: Unremarkable. Bones: Unremarkable. IMPRESSION: No evidence of pulmonary embolism. ACT 112: Negative or not required by law. Electronically signed by: Dashawn Hansen M.D. 10/17/2021 4:19 PM
[2021-10-17 16:46] LABS: Influenza A virus by PCR Negative (Neg); Influenza B virus by PCR Negative (Neg); RSV by PCR Negative (Neg); SARS CoV2 RNA(COVID-19) InHosp NEGATIVE (Negative)
--- NOTE | 2021-10-17 17:23 | Ultrasound Report ---
ULTRASOUND LEFT LOWER EXTREMITY VENOUS CLINICAL HISTORY: Left leg pain and swelling. COMPARISON STUDY: Bilateral lower extremity venous ultrasound dated 02/07/2007. TECHNIQUE: Real-time, grayscale, and color Doppler sonography of the deep veins of the left lower ext remity was performed from the inguinal crease to the calf. Compression and augmentation were utilized . FINDINGS: There is no sonographic evidence of deep venous thrombosis identified in the left lower ext remity. The common femoral, superficial femoral, and popliteal veins are patent and normally compress ible. The greater saphenous vein and the profunda femoris vein at the junction with the common femora l vein are clear. The visualized calf veins are patent. Soft tissue edema is noted in the calf. IMPRESSION: There is no sonographic evidence of deep venous thrombosis identified in the left lower e xtremity. ACT 112: Negative or not required by law. Electronically signed by: Kenny Ware M.D. 10/17/2021 5:22 PM
[2021-10-17] MEDS ORDERED: SULFAMETHOXAZOLE/TRIMETHOPRIM DS 800/160MG TAB PO ONE (17:40)
[2021-10-17] MEDS: CLINDAMYCIN 600 MG in DEXTROSE 5% 50 ML IV SCH (20:38)
[2021-10-17] MEDS ORDERED: ONDANSETRON 4 MG OD TAB PO PRN (23:36)
[2021-10-17] MEDS ORDERED: NITROGLYCERIN SL 0.4 MG/TAB TAB SL PRN (23:36)
[2021-10-18] MEDS: BRIMONIDINE TARTRATE 0.2% 5ML OPB SCH ×3 (01:24→20:11)
[2021-10-18] MEDS: DORZOLAMIDE/TIMOLOL 22.3/6.8MG/ML 10 ML BTL OPB SCH ×3 (01:25→20:11)
[2021-10-18] MEDS: ASPIRIN 81 MG ECTAB PO SCH ×3 (01:25→20:13)
[2021-10-18] MEDS: BACLOFEN 10 MG TAB PO SCH ×3 (01:25→20:10)
[2021-10-18] MEDS: LATANOPROST 0.005% OP SOLN 2.5 ML BTL OPB SCH ×2 (01:26→20:11)
[2021-10-18] MEDS: PREGABALIN 50 MG CAP PO SCH ×3 (01:26→20:11)
[2021-10-18] MEDS: ENOXAPARIN INJ 40 MG/0.4 ML SYR SQ SCH ×3 (01:27→23:10)
[2021-10-18] MEDS: traZODone HCL 50 MG TAB PO SCH ×2 (01:27→20:11)
[2021-10-18] MEDS: ACETAMINOPHEN 325 MG TAB PO PRN ×3 (01:32→20:17)
--- NOTE | 2021-10-18 03:25 | History and Physical Report ---
DATE OF ADMISSION: 10/17/2021. CHIEF COMPLAINT: Shortness of breath on exertion. HISTORY OF PRESENT ILLNESS: This is a 61-year-old female with past medical history significant for chronic venous insufficiency of lower extremity, morbid obesity, generalized osteoarthritis, hereditary and idiopathic peripheral neuropathy, history of glaucoma, history of bilateral knee replacement, generalized anxiety disorder, depression. Presents with ongoing shortness of breath for several months, but last two to three weeks it got progressively worsened and last couple of weeks she also developed erythema and swelling in the left lower extremity and last 2 to 3 days, she developed sore throat, runny nose, feeling like low-grade temperature and some greenish yellow sputum with cough. She did not receive COVID booster and she did not receive flu vaccine and that is the reason she came to the ER. In the ER, workup for COVID was negative. Flu and RSV was negative. D-dimer was elevated at 1210. CT of the chest, no PE, no acute findings. Venous Doppler, no DVT. Hemodynamically stable. When the patient is resting, she is doing fine, but with exertion, her oxygen saturation is dropping down to 80s. So we were called for admission. The patient currently denies any headache. No blurred visions. Has some runny nose, sore throat, and cough. Appetite is down. No chest pain. Shortness of breath on exertion, not able to walk much. Some slight nausea. No abdominal pain, no diarrhea or constipation, no blood in stools or black stools. Normal bladder movements. ALLERGIES: PENICILLINS, CODEINE, MORPHINE, THIOAMIDES. PAST MEDICAL HISTORY: As mentioned above. PAST SURGICAL HISTORY: Bilateral knee arthroplasty, colonoscopy, EGDs. MEDICATIONS: The patient is on Tylenol Arthritis 1300 mg p.o. q. 8 hours p.r.n., aspirin 81 mg p.o. b.i.d., baclofen 10 mg p.o. b.i.d., brimonidine one drop ophthalmic b.i.d., celecoxib 100 mg p.o. a.m., dorzolamide-timolol 1 drop ophthalmic b.i.d., duloxetine 60 mg p.o. a.m., furosemide 20 mg p.o. a.m., latanoprost 1 drop ophthalmic at bedtime, omeprazole 20 mg p.o. daily, Zofran 4 mg p.o. t.i.d. p.r.n., Lyrica 50 mg p.o. b.i.d., trazodone 50 mg p.o. at bedtime. FAMILY HISTORY: Significant for mother has diabetes, stroke, [place]; sister had MVA, head injury. SOCIAL HISTORY: Single. No smoking, no alcohol, no drug use. REVIEW OF SYSTEMS: As per HPI. Rest of the review of systems is negative. PHYSICAL EXAMINATION: GENERAL: The patient is morbidly obese, currently not in acute distress. VITAL SIGNS: Temperature 36.7, pulse 66, respiratory rate 15, blood pressure 128/65, oxygen is 90% on room air. HEENT: Pupils equal, round and reactive to light. Oral mucosa moist. NECK: No JVD, no neck masses. CARDIOVASCULAR: S1 and S2 heard. Regular rate and rhythm. No murmur, no gallop. RESPIRATORY SYSTEM: Normal AP diameter. No accessory muscle use. No wheezing, no crackles. ABDOMEN: Soft, bowel sounds present, nontender, no distention. CENTRAL NERVOUS SYSTEM: Cranial nerves II through XII are grossly intact, nonfocal. EXTREMITIES: Bilateral lower extremity edema present. Left lower extremity is erythematous and swollen. LABORATORY DATA: WBC 7.6, hemoglobin 13.1, hematocrit 42, platelets 228. D- dimer 1210. Sodium 140, potassium 3.8, chloride 102, bicarbonate 32, BUN 20, creatinine 0.6, serum glucose 92, calcium 8.7, magnesium 2.1, total bilirubin 0.7, AST 22, ALT 17, alkaline phosphatase 62. Troponin I less than 0.03. TSH 1.5. SARS-CoV-2 PCR negative. Influenza A and B PCR negative. RSV PCR negative. IMAGING DATA: CT of the chest, no PE. Lower extremity venous Doppler, no DVTs. EKG: Normal sinus rhythm at a rate of 61. No significant change was found. ASSESSMENT AND PLAN: This 61-year-old female presents with ongoing shortness of breath with exertion as well as left lower extremity cellulitis. 1. Shortness of breath on exertion, hypoxia on exertion: CT of the chest, no pulmonary embolism. Doppler, no deep venous thrombosis. The patient is morbidly obese. May need sleep study as outpatient. Will do nocturnal pulse ox study. Two step prior to discharge. Will follow echocardiogram to rule out any underlying congestive heart failure or pulmonary hypertension. Closely monitor in the med tele. 2. Left lower extremity cellulitis. Started on IV clindamycin. The patient has severe allergy to penicillins. Will follow the response. 3. History of generalized anxiety disorder and depression: Continue duloxetine. 4. History of hereditary and idiopathic peripheral neuropathy. Continue pregabalin. 5. Glaucoma: Continue her home eyedrops. 6. Osteoarthritis: Continue her home pain medications. 7. Morbid obesity: Needs counseling. 8. Chronic lower extremity venous insufficiency: On Lasix. 9. Deep venous thrombosis prophylaxis: Placed on Lovenox. DISPOSITION: Closely monitor in the med tele. PT/OT prior to discharge. Social service to help with discharge planning. Job ID: [id number] [facility]
[2021-10-18] MEDS: CLINDAMYCIN 600 MG in DEXTROSE 5% 50 ML IV SCH ×3 (05:06→20:10)
[2021-10-18 06:22] LABS: Basophils # (auto) 0.06 K/uL (0-0.2); Basophils % (auto) 0.9 %; Eosinophils # (auto) 0.75 K/uL (0-0.5); Hematocrit (blood only) 39.5 % (37-47); Hemoglobin 12.1 g/dL (12.0-16.0); Immature Granulocytes # (auto) 0.02 K/uL (0.00-0.02); Immature Granulocytes % (auto) 0.3 %; Lymphocytes # (auto) 1.68 K/uL (1.2-3.4); Lymphocytes % (auto) 24.6 %; Mean Corpuscular Hemoglobin 28.3 pg (25-34); Mean Corpuscular Hgb Conc 30.6 g/dL (32-36); Mean Corpuscular Volume 92.5 fL (80-100); Mean Platelet Volume 11.7 fL (7.4-10.4); Monocytes # (auto) 0.69 K/uL (0.11-0.59); Monocytes % (auto) 10.1 %; Neutrophils # (auto) 3.64 K/uL (1.4-6.5); Neutrophils % (auto) 53.1 %; Platelet Count 196 K/uL (130-400); RDW Coefficient of Variation 15.4 % (11.5-14.5); Red Blood Count 4.27 M/uL (4.2-5.4); White Blood Count 6.84 K/uL (4.8-10.8)
[2021-10-18 06:46] LABS: Troponin I < 0.03 ng/ml (0-0.04)
[2021-10-18 06:54] LABS: Anion Gap 8 (3-11); BUN Creatinine Ratio 26.3 (10-20); Blood Urea Nitrogen 15 mg/dl (6-23); Calcium 8.1 mg/dl (8.5-10.1); Carbon Dioxide 29 mmol/L (21-32); Chloride 102 mmol/L (98-107); Creatinine Clr Calc Pharmacy 139.5 ml/min; Est GFR (African American) 116.8 ml/min; Est GFR (Non-African American) 100.8 ml/min; Glucose 90 mg/dl (70-99(Fasting)); Magnesium 2.2 mg/dl (1.7-2.4); Sodium 139 mmol/L (136-145)
[2021-10-18] MEDS: PANTOprazole 40 MG TAB PO SCH (07:41)
[2021-10-18] MEDS: DULoxetine HCL 60 MG CAP PO SCH (07:41)
[2021-10-18] MEDS: FUROSEMIDE 20 MG TAB PO SCH (07:41)
[2021-10-18] MEDS: IPRATROPIUM BROMIDE NEB SOLN 0.02% 2.5 ML VIAL INH SCH ×2 (12:44→19:18)
[2021-10-18] MEDS: LEVALBUTEROL 1.25MG/0.5ML NEB INH SCH ×2 (12:44→19:18)
[2021-10-18] MEDS ORDERED: XOPENEX/ATROVENT 1.25mg/0.5MG NEB COMBO NEB SCH (13:00)
[2021-10-18] MEDS: predniSONE 20 MG TAB PO SCH (13:11)
[2021-10-18] MEDS: DOXYCYCLINE HYCLATE 100 MG CAP PO SCH ×2 (13:12→20:13)
--- NOTE | 2021-10-18 15:22 | Electrocardiogram Report ---
Test Reason : Blood Pressure : / mmHG Vent. Rate : 061 BPM Atrial Rate : 061 BPM P-R Int : 146 ms QRS Dur : 086 ms QT Int : 450 ms P-R-T Axes : 027 024 020 degrees QTc Int : 453 ms Poor data quality, interpretation may be adversely affected Normal sinus rhythm Low voltage QRS Borderline ECG When compared with ECG of 01-NOV-2019 14:26, No significant change was found Confirmed by Reagan Miles ([id number]) on 10/18/2021 3:22:30 PM Referred By: Linda Watkins Confirmed By:Reagan Miles
--- NOTE | 2021-10-18 18:22 | Hospitalist Progress Note ---
Date of Service October 18, 2021 Assessment & Plan (1) Dyspnea: (2) Cellulitis: Plan: ASSESSMENT AND PLAN: This 61-year-old female presents with ongoing shortness of breath with exertion as well as left lower extremity cellulitis. 1. Shortness of breath on exertion, hypoxia on exertion: Possible Mild COPD/Asthma exacerbation, Acute Sinusitis, Acute Bronchitis r/o CHF, Pulmonary Hypertension start Doxycyline PO Prednisone 40mg po daily Nebs sputum culture: pending Echo: pending The patient is morbidly obese. May need sleep study as outpatient. Will do nocturnal pulse ox study. CT of the chest, no pulmonary embolism. Doppler, no deep venous thrombosis. 2. Left lower extremity cellulitis. -- IV clindamycin. The patient has severe allergy to penicillins. -- monitor 3. History of generalized anxiety disorder and depression: -- Continue duloxetine. 4. History of hereditary and idiopathic peripheral neuropathy. -- Continue pregabalin. 5. Glaucoma: Continue her home eyedrops. 6. Osteoarthritis: Continue her home pain medications. 7. Morbid obesity: Needs counseling. 8. Chronic lower extremity venous insufficiency: On Lasix. 9. Deep venous thrombosis prophylaxis: Lovenox. DISPOSITION: anticipate d/c home when medically stable Admission and Anticipated Discharge Date Admission Date: October 17, 2021 Subjective ff up for cellulitis, shortness of breath, etc seen resting in bedside chair, comfortable not in distress reports dyspnea with exertion productive cough, sore throat, nasal congestion and sinus pressure left leg with mild discomfort no other symptoms Review of Systems Review of Systems: all noted and negative except for above Physical Exam Physical Exam: General- oriented x 3, not in distress, speaks in sentences with no effort or accessory muscle use Head- atraumatic Eyes- PERRL, EOMI, anicteric ENT- oropharynx clear (+) mild frontal sinus tenderness Neck- supple, no JVD, no adenopathy, no thyromegaly; carotids +2/2, no bruits appreciated Lungs- (+) faint expiratory wheeze r>l Heart- normal rate, regular rhythm; no murmur, no gallop, no rub appreciated Abdomen- normal bowel sounds, nondistended, soft, nontender, no masses or hepatosplenomegaly Extremities- grade 1 lower ext, l lower ext: (+) moderate erythema, mild warmth and tenderness, no calf tenderness; peripheral pulses intact Neuro- alert, oriented x 3; CN 2-12 grossly intact; motor 5/5 bilaterally;sensation 100% on all extremities; no other gross focal neurologic deficits Skin- warm & dry Results & Data Results & Data ([facility]) Vital Signs (Past 12 Hours) Vital Signs Temp Pulse Pulse Resp BP Pulse Ox 10/18/21 15:12 77 10/18/21 12:47 70 18 90 10/18/21 11:15 36.7 C 69 20 109/75 93 10/18/21 07:11 36.6 C 67 20 122/68 92 all noted and reviewed including below (1) Dyspnea Dyspnea type: dyspnea on exertion Qualified Code(s): R06.00 - Dyspnea, unspecified (2) Cellulitis Laterality: left Site of cellulitis: extremity Site of cellulitis of extremity: lower extremity Qualified Code(s): L03.116 - Cellulitis of left lower limb
[2021-10-19] MEDS: IPRATROPIUM BROMIDE NEB SOLN 0.02% 2.5 ML VIAL INH SCH ×2 (01:28→07:32)
[2021-10-19] MEDS: LEVALBUTEROL 1.25MG/0.5ML NEB INH SCH ×2 (01:29→07:32)
[2021-10-19] MEDS: CLINDAMYCIN 600 MG in DEXTROSE 5% 50 ML IV SCH ×3 (05:17→19:49)
[2021-10-19] MEDS: BACLOFEN 10 MG TAB PO SCH ×2 (08:14→19:50)
[2021-10-19] MEDS: DULoxetine HCL 60 MG CAP PO SCH (08:15)
[2021-10-19] MEDS: PANTOprazole 40 MG TAB PO SCH (08:15)
[2021-10-19] MEDS: DOXYCYCLINE HYCLATE 100 MG CAP PO SCH ×2 (08:16→19:54)
[2021-10-19] MEDS: predniSONE 20 MG TAB PO SCH (08:16)
[2021-10-19] MEDS: FUROSEMIDE 20 MG TAB PO SCH (08:16)
[2021-10-19] MEDS: ASPIRIN 81 MG ECTAB PO SCH ×2 (08:16→19:49)
[2021-10-19] MEDS: BRIMONIDINE TARTRATE 0.2% 5ML OPB SCH ×2 (08:20→19:50)
[2021-10-19] MEDS: DORZOLAMIDE/TIMOLOL 22.3/6.8MG/ML 10 ML BTL OPB SCH ×2 (08:21→19:50)
[2021-10-19] MEDS: PREGABALIN 50 MG CAP PO SCH ×2 (08:23→19:50)
[2021-10-19] MEDS ORDERED: IPRATROPIUM BROMIDE NEB SOLN 0.02% 2.5 ML VIAL INH PRN (09:19)
[2021-10-19] MEDS ORDERED: LEVALBUTEROL 1.25MG/0.5ML NEB INH PRN (09:20)
[2021-10-19] MEDS ORDERED: FUROSEMIDE INJ 20 MG/2 ML VIAL IV ONE (10:27)
[2021-10-19] MEDS: ENOXAPARIN INJ 40 MG/0.4 ML SYR SQ SCH ×2 (12:09→20:31)
--- NOTE | 2021-10-19 17:22 | Hospitalist Progress Note ---
Date of Service October 19, 2021 Assessment & Plan (1) Dyspnea: (2) Cellulitis: Plan: ASSESSMENT AND PLAN: This 61-year-old female presents with ongoing shortness of breath with exertion as well as left lower extremity cellulitis. 1. Shortness of breath on exertion, hypoxia on exertion: Possible Mild COPD/Asthma exacerbation, Acute Sinusitis, Acute Bronchitis Acute diastolic CHF exacerbation, mild; pulmonary Hypertension, mild-no diagnosis Clinically improving Continue doxycycline, prednisone, nebs sputum culture: pending Echo: Grade 1 diastolic dysfunction, mild pulmonary hypertension Increase Lasix from 20 to 40 mg daily, will also give Lasix 20 mg IV this afternoon Nocturnal pulse extremity: Patient needs 2 L of oxygen via nasal cannula while sleeping As per patient, she has been diagnosed with obstructive sleep apnea 3 years ago but has not been tolerating the mask We will order CPAP at night Will need at least nocturnal oxygen supplement upon discharge CT of the chest, no pulmonary embolism. Doppler, no deep venous thrombosis. 2. Left lower extremity cellulitis. -- IV clindamycin. The patient has severe allergy to penicillins. --Gradually improving Continue IV clindamycin 3. History of generalized anxiety disorder and depression: -- Continue duloxetine. 4. History of hereditary and idiopathic peripheral neuropathy. -- Continue pregabalin. 5. Glaucoma: Continue her home eyedrops. 6. Osteoarthritis: Continue her home pain medications. 7. Morbid obesity:Counseling performed 8. Chronic lower extremity venous insufficiency: On Lasix. 9. Deep venous thrombosis prophylaxis: Lovenox. DISPOSITION: anticipate d/c home when medically stable Admission and Anticipated Discharge Date Admission Date: October 17, 2021 Subjective Follow-up for shortness of breath, acute bronchitis, CHF, etc. Seen sitting up in bed, comfortable, in good spirits States she feels better compared to yesterday Breathing is better Patient exertion also improving Less sinus pressure, less dry cough, still having some sore throat No chest pain, palpitations, dizziness Left lower extremity still with some tenderness No fevers or chills No other symptoms Review of Systems Review of Systems: all noted and negative except for above Physical Exam Physical Exam: General- oriented x 3, not in distress, speaks in sentences with no effort or accessory muscle use Eyes- anicteric Neck- no JVD Lungs-diminished but improving air entry bilaterally, no wheezing, no crackles Heart- normal rate, regular rhythm; no murmurs Abdomen- normal bowel sounds, nondistended, soft, nontender Extremities- no pretibial edema, no calf tenderness Bilateral lower extremity edema grade 1 Left lower extremity: Mild to moderate erythema-improving Moderate tenderness, mild warmth Neuro- alert, oriented x 3; no gross focal neurologic deficits Skin- warm & dry Results & Data Results & Data ([facility]) Vital Signs (Past 12 Hours) Vital Signs Temp Pulse Resp BP Pulse Ox 10/19/21 17:16 83 16 93 10/19/21 15:33 36.7 C 69 20 138/80 93 10/19/21 11:41 36.6 C 62 19 156/89 H 94 10/19/21 07:32 73 16 93 10/19/21 07:13 36.5 C 65 20 144/97 H 92 all noted and reviewed including below (1) Dyspnea Dyspnea type: dyspnea on exertion Qualified Code(s): R06.00 - Dyspnea, unspecified (2) Cellulitis Laterality: left Site of cellulitis: extremity Site of cellulitis of extremity: lower extremity Qualified Code(s): L03.116 - Cellulitis of left lower limb
[2021-10-19] MEDS: traZODone HCL 50 MG TAB PO SCH (19:50)
[2021-10-19] MEDS: LATANOPROST 0.005% OP SOLN 2.5 ML BTL OPB SCH (19:50)
[2021-10-20] MEDS: CLINDAMYCIN 600 MG in DEXTROSE 5% 50 ML IV SCH ×3 (05:43→19:26)
[2021-10-20 07:36] LABS: Hematocrit (blood only) 41.8 % (37-47); Hemoglobin 12.9 g/dL (12.0-16.0); Mean Corpuscular Hemoglobin 28.6 pg (25-34); Mean Corpuscular Hgb Conc 30.9 g/dL (32-36); Mean Corpuscular Volume 92.7 fL (80-100); Mean Platelet Volume 11.5 fL (7.4-10.4); Platelet Count 226 K/uL (130-400); RDW Coefficient of Variation 15.6 % (11.5-14.5); RDW Standard Deviation 52.6 fL (36.4-46.3); Red Blood Count 4.51 M/uL (4.2-5.4); White Blood Count 8.35 K/uL (4.8-10.8)
[2021-10-20] MEDS: BACLOFEN 10 MG TAB PO SCH ×2 (08:06→20:06)
[2021-10-20] MEDS: BRIMONIDINE TARTRATE 0.2% 5ML OPB SCH ×2 (08:06→20:08)
[2021-10-20] MEDS: ASPIRIN 81 MG ECTAB PO SCH ×2 (08:06→20:06)
[2021-10-20] MEDS: DORZOLAMIDE/TIMOLOL 22.3/6.8MG/ML 10 ML BTL OPB SCH ×2 (08:06→20:07)
[2021-10-20] MEDS: DOXYCYCLINE HYCLATE 100 MG CAP PO SCH ×2 (08:07→20:06)
[2021-10-20] MEDS: PREGABALIN 50 MG CAP PO SCH ×2 (08:07→20:06)
[2021-10-20] MEDS: PANTOprazole 40 MG TAB PO SCH (08:07)
[2021-10-20] MEDS: DULoxetine HCL 60 MG CAP PO SCH (08:07)
[2021-10-20] MEDS: predniSONE 20 MG TAB PO SCH (08:07)
[2021-10-20 08:12] LABS: Creatinine Clr Calc Pharmacy 118.4 ml/min; Est GFR (African American) 110.7 ml/min; Est GFR (Non-African American) 95.5 ml/min
[2021-10-20] MEDS ORDERED: FUROSEMIDE 40 MG TAB PO SCH (09:00)
[2021-10-20] MEDS ORDERED: FUROSEMIDE INJ 20 MG/2 ML VIAL IV ONE (10:54)
[2021-10-20] MEDS: ENOXAPARIN INJ 40 MG/0.4 ML SYR SQ SCH ×2 (11:57→23:03)
[2021-10-20] MEDS: FLUTICASONE/VILANTEROL 100/25MCG 14 PUFFS/INHALER INH SCH (12:26)
[2021-10-20] MEDS ORDERED: FUROSEMIDE 40 MG/4 ML VIAL IV ONE (16:00)
--- NOTE | 2021-10-20 16:41 | Hospitalist Progress Note ---
Date of Service October 20, 2021 Assessment & Plan (1) Dyspnea: (2) Cellulitis: Plan: ASSESSMENT AND PLAN: This 61-year-old female presents with ongoing shortness of breath with exertion as well as left lower extremity cellulitis. 1. Shortness of breath on exertion, hypoxia on exertion: Possible Mild COPD/Asthma exacerbation, Acute Sinusitis, Acute Bronchitis Acute diastolic CHF exacerbation, mild; pulmonary Hypertension, mild-no diagnosis gradually improving Continue doxycycline, prednisone, nebs sputum culture: pending Echo: Grade 1 diastolic dysfunction, mild pulmonary hypertension Lasix IV BID today Nocturnal pulse extremity: Patient needs 2 L of oxygen via nasal cannula while sleeping As per patient, she has been diagnosed with obstructive sleep apnea 3 years ago but has not been tolerating the mask CPAP ordered Will need at least nocturnal oxygen supplement upon discharge CT of the chest, no pulmonary embolism. Doppler, no deep venous thrombosis. 2. Left lower extremity cellulitis. -- IV clindamycin. The patient has severe allergy to penicillins. --Gradually improving Continue IV clindamycin 3. History of generalized anxiety disorder and depression: -- Continue duloxetine. 4. History of hereditary and idiopathic peripheral neuropathy. -- Continue pregabalin. 5. Glaucoma: Continue her home eyedrops. 6. Osteoarthritis: Continue her home pain medications. 7. Morbid obesity:Counseling performed 8. Chronic lower extremity venous insufficiency: On Lasix. 9. Deep venous thrombosis prophylaxis: Lovenox. DISPOSITION: anticipate d/c home when medically stable Admission and Anticipated Discharge Date Admission Date: October 17, 2021 Subjective ff up for acute bronchitis, diastolic CHF, leg cellulitis, etc seen resting in chair, comfortable states breathing is better, still has some dyspnea on exertion no chest pain less cough, congestion leg pain improving no other symptoms Review of Systems Review of Systems: all noted and negative except for above Physical Exam Physical Exam: General- oriented x 3, not in distress, speaks in sentences with no effort or accessory muscle use Eyes- anicteric Neck- no JVD Lungs-diminished but clear Heart- normal rate, regular rhythm; no murmurs Abdomen- normal bowel sounds, nondistended, soft, nontender Extremities- grade 1 lower extremity edema, no calf tenderness left lower leg: mild erythema, warmth, tenderness Neuro- alert, oriented x 3; no gross focal neurologic deficits Skin- warm & dry Results & Data Results & Data ([facility]) Vital Signs (Past 12 Hours) Vital Signs Temp Pulse Pulse Pulse Pulse Pulse Resp 10/20/21 14:54 82 10/20/21 14:46 36.8 C 77 20 10/20/21 11:15 36.6 C 68 19 10/20/21 09:15 97 H 89 72 10/20/21 07:28 36.6 C 60 20 10/20/21 07:21 66 Resp Resp Resp BP Pulse Ox Pulse Ox Pulse Ox 10/20/21 14:54 10/20/21 14:46 126/79 92 10/20/21 11:15 113/71 93 10/20/21 09:15 25 H 21 18 90 94 10/20/21 07:28 135/82 94 10/20/21 07:21 Pulse Ox 10/20/21 14:54 10/20/21 14:46 10/20/21 11:15 10/20/21 09:15 96 10/20/21 07:28 10/20/21 07:21 all noted and reviewed including below (1) Dyspnea Dyspnea type: dyspnea on exertion Qualified Code(s): R06.00 - Dyspnea, unspecified (2) Cellulitis Laterality: left Site of cellulitis: extremity Site of cellulitis of extremity: lower extremity Qualified Code(s): L03.116 - Cellulitis of left lower limb
[2021-10-20] MEDS: traZODone HCL 50 MG TAB PO SCH (20:06)
[2021-10-20] MEDS: LATANOPROST 0.005% OP SOLN 2.5 ML BTL OPB SCH (20:07)
[2021-10-21] MEDS: CLINDAMYCIN 600 MG in DEXTROSE 5% 50 ML IV SCH ×3 (03:21→19:50)
[2021-10-21] MEDS: DOXYCYCLINE HYCLATE 100 MG CAP PO SCH ×2 (08:07→20:26)
[2021-10-21] MEDS: BACLOFEN 10 MG TAB PO SCH ×2 (08:07→20:24)
[2021-10-21] MEDS: ASPIRIN 81 MG ECTAB PO SCH ×2 (08:07→20:24)
[2021-10-21] MEDS: BRIMONIDINE TARTRATE 0.2% 5ML OPB SCH ×2 (08:08→20:26)
[2021-10-21] MEDS: DORZOLAMIDE/TIMOLOL 22.3/6.8MG/ML 10 ML BTL OPB SCH ×2 (08:08→20:25)
[2021-10-21] MEDS: predniSONE 20 MG TAB PO SCH (08:09)
[2021-10-21] MEDS: FLUTICASONE/VILANTEROL 100/25MCG 14 PUFFS/INHALER INH SCH (08:09)
[2021-10-21] MEDS: PANTOprazole 40 MG TAB PO SCH (08:09)
[2021-10-21] MEDS: DULoxetine HCL 60 MG CAP PO SCH (08:09)
[2021-10-21] MEDS: PREGABALIN 50 MG CAP PO SCH ×2 (08:12→20:32)
[2021-10-21 08:48] LABS: BUN Creatinine Ratio 36.8 (10-20); Calcium 8.6 mg/dl (8.5-10.1); Creatinine Clr Calc Pharmacy 116.6 ml/min; Est GFR (African American) 110.2 ml/min; Est GFR (Non-African American) 95.1 ml/min; Magnesium 2.4 mg/dl (1.7-2.4); Potassium 3.5 mmol/L (3.5-5.1)
[2021-10-21] MEDS: FUROSEMIDE 40 MG/4 ML VIAL IV SCH ×2 (10:22→20:33)
[2021-10-21] MEDS: ENOXAPARIN INJ 40 MG/0.4 ML SYR SQ SCH ×2 (12:21→23:12)
--- NOTE | 2021-10-21 16:56 | Hospitalist Progress Note ---
Date of Service October 21, 2021 Assessment & Plan (1) Dyspnea: (2) Cellulitis: Plan: ASSESSMENT AND PLAN: This 61-year-old female presents with ongoing shortness of breath with exertion as well as left lower extremity cellulitis. 1. Shortness of breath on exertion, hypoxia on exertion: Possible Mild COPD/Asthma exacerbation, Acute Sinusitis, Acute Bronchitis Acute diastolic CHF exacerbation, mild; pulmonary Hypertension, mild-no diagnosis continues to improve gradually Continue doxycycline, prednisone- taper, nebs add Breo Echo: Grade 1 diastolic dysfunction, mild pulmonary hypertension continue Lasix IV BID today anticipate PO Lasix 40mg bid starting tomorrow Nocturnal pulse extremity: Patient needs 2 L of oxygen via nasal cannula while sleeping As per patient, she has been diagnosed with obstructive sleep apnea 3 years ago but has not been tolerating the mask CPAP ordered Will need at least nocturnal oxygen supplement upon discharge Will need to re-establish with [facility], to be fitted with proper CPAP mask CT of the chest, no pulmonary embolism. Doppler, no deep venous thrombosis. 2. Left lower extremity cellulitis. -- IV clindamycin. The patient has severe allergy to penicillins. --Gradually improving Continue IV clindamycin 3. History of generalized anxiety disorder and depression: -- Continue duloxetine. 4. History of hereditary and idiopathic peripheral neuropathy. -- Continue pregabalin. 5. Glaucoma: Continue her home eyedrops. 6. Osteoarthritis: Continue her home pain medications. 7. Morbid obesity:Counseling performed 8. Chronic lower extremity venous insufficiency: On Lasix. 9. Deep venous thrombosis prophylaxis: Lovenox. DISPOSITION: anticipate d/c home when medically stable, hopefully tomorrow plan of care discussed with patient in detail and at length all questions answered she is understanding, agreeable, comfortable with the plan of care Admission and Anticipated Discharge Date Admission Date: October 17, 2021 Subjective Follow-up for dyspnea on exertion, acute bronchitis, CHF diastolic type acute exacerbation, etc. Seen resting in bed, not in distress, in good spirits States dyspnea improving but still having dyspnea on exertion Cough resolving, no chest pain Leg pain also improving No fevers or chills No other symptom Review of Systems Review of Systems: all noted and negative except for above Physical Exam Physical Exam: General- oriented x 2, not in distress, speaks in sentences with no effort or accessory muscle use Eyes- anicteric Neck- no JVD Lungs- diminished but clear breath sounds bilaterally Heart- normal rate, regular rhythm; no murmurs Abdomen- normal bowel sounds, nondistended, soft, nontender Extremities- mild lower leg edema, no calf tenderness left lower leg: (+) mild erythema, warmth, tenderness Neuro- alert, oriented x 2; no gross focal neurologic deficits Skin- warm & dry Results & Data Results & Data ([facility]) Vital Signs (Past 12 Hours) Vital Signs Temp Pulse Pulse Resp BP Pulse Ox 10/21/21 15:48 68 10/21/21 15:13 36.7 C 68 19 150/94 H 92 10/21/21 10:46 36.7 C 70 16 122/82 93 10/21/21 08:43 62 10/21/21 07:31 36.7 C 75 20 126/84 93 all noted and reviewed including below (1) Dyspnea Dyspnea type: dyspnea on exertion Qualified Code(s): R06.00 - Dyspnea, unspecified (2) Cellulitis Laterality: left Site of cellulitis: extremity Site of cellulitis of extremity: lower extremity Qualified Code(s): L03.116 - Cellulitis of left lower limb
[2021-10-21] MEDS: LATANOPROST 0.005% OP SOLN 2.5 ML BTL OPB SCH (20:26)
[2021-10-21] MEDS: traZODone HCL 50 MG TAB PO SCH (20:26)
[2021-10-22] MEDS: CLINDAMYCIN 600 MG in DEXTROSE 5% 50 ML IV SCH ×3 (03:06→19:56)
[2021-10-22] MEDS: FLUTICASONE/VILANTEROL 100/25MCG 14 PUFFS/INHALER INH SCH (08:14)
[2021-10-22] MEDS: DULoxetine HCL 60 MG CAP PO SCH (08:15)
[2021-10-22] MEDS: predniSONE 20 MG TAB PO SCH (08:15)
[2021-10-22] MEDS: PANTOprazole 40 MG TAB PO SCH (08:15)
[2021-10-22] MEDS: DOXYCYCLINE HYCLATE 100 MG CAP PO SCH ×2 (08:15→20:02)
[2021-10-22] MEDS: ASPIRIN 81 MG ECTAB PO SCH ×2 (08:16→20:02)
[2021-10-22] MEDS: BRIMONIDINE TARTRATE 0.2% 5ML OPB SCH ×2 (08:16→20:07)
[2021-10-22] MEDS: BACLOFEN 10 MG TAB PO SCH ×2 (08:16→20:07)
[2021-10-22] MEDS: DORZOLAMIDE/TIMOLOL 22.3/6.8MG/ML 10 ML BTL OPB SCH ×2 (08:16→20:06)
[2021-10-22] MEDS: FUROSEMIDE 40 MG/4 ML VIAL IV SCH ×2 (08:17→20:08)
[2021-10-22] MEDS: PREGABALIN 50 MG CAP PO SCH ×2 (08:19→20:03)
--- NOTE | 2021-10-22 09:43 | Hospitalist Progress Note ---
Date of Service October 22, 2021 Assessment & Plan (1) Dyspnea: (2) Cellulitis: Plan: ASSESSMENT AND PLAN: This 61-year-old female presents with ongoing shortness of breath with exertion as well as left lower extremity cellulitis. 1. Shortness of breath on exertion, hypoxia on exertion: Possible Mild COPD/Asthma exacerbation, Acute Sinusitis, Acute Bronchitis Acute diastolic CHF exacerbation, mild; pulmonary Hypertension, mild-no diagnosis breathing is improving, but reporting central chest pressure with exertion Continue doxycycline, prednisone- taper, nebs, Breo Echo: Grade 1 diastolic dysfunction, mild pulmonary hypertension continue Lasix IV daily will get troponin stat, ekg consult Cardiology Nocturnal pulse extremity: Patient needs 2 L of oxygen via nasal cannula while sleeping As per patient, she has been diagnosed with obstructive sleep apnea 3 years ago but has not been tolerating the mask CPAP ordered Will need at least nocturnal oxygen supplement upon discharge [facility] to be fitted with proper CPAP mask CT of the chest, no pulmonary embolism. Doppler, no deep venous thrombosis. 2. Left lower extremity cellulitis. -- IV clindamycin. The patient has severe allergy to penicillins. --Gradually improving Continue IV clindamycin 3. History of generalized anxiety disorder and depression: -- Continue duloxetine. 4. History of hereditary and idiopathic peripheral neuropathy. -- Continue pregabalin. 5. Glaucoma: Continue her home eyedrops. 6. Osteoarthritis: Continue her home pain medications. 7. Morbid obesity:Counseling performed 8. Chronic lower extremity venous insufficiency: On Lasix. 9. Deep venous thrombosis prophylaxis: Lovenox. DISPOSITION: anticipate d/c home when medically stable, hopefully tomorrow plan of care discussed with patient in detail and at length all questions answered she is understanding, agreeable, comfortable with the plan of care Admission and Anticipated Discharge Date Admission Date: October 17, 2021 Subjective ff up for dyspnea on exertion, acute bronchitis, diastolic CHF- new diagnosis, etc seen resting in bed, not in distress reports central chest pressure, worse with exertion non radiating, no nausea/vomiting, diaphoresis breathing is improving leg pain also improving no other symptoms Review of Systems Review of Systems: all noted and negative except for above Physical Exam Physical Exam: General- oriented x 3, not in distress, speaks in sentences with no effort or accessory muscle use Eyes- anicteric Neck- no JVD Lungs- clear breath sounds, no crackles or wheezing bilaterally Heart- normal rate, regular rhythm; no murmurs Abdomen- normal bowel sounds, nondistended, soft, nontender Extremities- mild lower extremity edema bl left lower ext: mild erythema, warmth, no tenderness Neuro- alert, oriented x 3; no gross focal neurologic deficits Skin- warm & dry Results & Data Results & Data ([facility]) Vital Signs (Past 12 Hours) Vital Signs Temp Pulse Pulse Resp BP Pulse Ox 10/22/21 07:28 61 10/22/21 06:23 36.5 C 58 L 18 115/72 92 10/22/21 04:20 77 11 L 94 10/22/21 02:59 35.8 C L 60 18 119/72 92 10/21/21 23:51 36.6 C 85 18 121/76 94 10/21/21 23:15 76 14 96 10/21/21 22:18 80 all noted and reviewed including below (1) Dyspnea Dyspnea type: dyspnea on exertion Qualified Code(s): R06.00 - Dyspnea, unsp ecified (2) Cellulitis Laterality: left Site of cellulitis: extremity Site of cellulitis of extremity: lower extremity Qualified Code(s): L03.116 - Cellulitis of left lower limb
[2021-10-22 10:21] LABS: Anion Gap 10 (3-11); BUN Creatinine Ratio 33.8 (10-20); Blood Urea Nitrogen 24 mg/dl (6-23); Calcium 8.5 mg/dl (8.5-10.1); Carbon Dioxide 31 mmol/L (21-32); Chloride 98 mmol/L (98-107); Creatinine Clr Calc Pharmacy 110.9 ml/min; Est GFR (African American) 107.3 ml/min; Est GFR (Non-African American) 92.6 ml/min; Glucose 132 mg/dl (70-99(Fasting)); Magnesium 2.2 mg/dl (1.7-2.4); Potassium 3.3 mmol/L (3.5-5.1); Sodium 139 mmol/L (136-145); Troponin I < 0.03 ng/ml (0-0.04)
--- NOTE | 2021-10-22 10:46 | Electrocardiogram Report ---
Test Reason : Blood Pressure : / mmHG Vent. Rate : 074 BPM Atrial Rate : 074 BPM P-R Int : 158 ms QRS Dur : 092 ms QT Int : 408 ms P-R-T Axes : 027 016 021 degrees QTc Int : 452 ms Normal sinus rhythm Normal ECG When compared with ECG of 17-OCT-2021 15:54, No significant change was found Confirmed by Conrado Carolina ([id number]) on 10/22/2021 10:45:35 AM Referred By: Linda Watkins Confirmed By:Ramesh Carolina
[2021-10-22] MEDS ORDERED: POTASSIUM CHLORIDE CRTAB 20 MEQ TABCR PO STA (12:34)
--- NOTE | 2021-10-22 13:45 | Cardiology Consultation ---
Date of Consultation October 22, 2021 Assessment & Plan (1) Chest pressure: (2) Pulmonary HTN: (3) OSEAS (obstructive sleep apnea): (4) Nocturnal hypoxemia: (5) Cellulitis: 61-year-old female admitted with chest discomfort, dyspnea, and lower extremity edema. Diagnosed with left lower extremity cellulitis and bronchitis. Respiratory symptoms improving, however, patient notes intermittent chest pressure as well as exertional symptoms over the past 2-3 weeks. No evidence of acute coronary syndrome with undetectable cardiac enzymes, normal ECG, and normal wall motion per echocardiogram. Recommend dobutamine stress echocardiography for further evaluation. There is evidence of mild pulmonary hypertension which I suspect is on the basis of obstructive sleep apnea/obesity hypoventilation syndrome and documented nocturnal hypoxemia. Patient reports intolerance to CPAP. Continue supplemental oxygen nightly. Consider outpatient polysomnography/sleep medicine evaluation. Lower extremity cellulitis/edema improving. Continue intravenous furosemide. Monitor GFR, electrolytes, and fluid balance. Supplement electrolytes as needed. History of Present Illness Reason for Consultation: Chest pain Requesting Physician: Dr. Braun Attending Physician: Bib Braun MD History of Present Illness 61-year-old female presented emergency department via her primary care physician's office due to lower extremity edema, chest discomfort, and shortness of breath. Covid testing negative. CT angiogram of the chest without evidence of pulmonary embolus. No parenchymal lung disease. Patient diagnosed with bronchitis, possible underlying asthma, and lower extremity cellulitis. Due to complaints of chest discomfort a cardiology consultation was requested. Describes chest discomfort and pressure more than 3 weeks duration. Discomfort typically occurs with exertion and often relieved with rest. No orthopnea, or PND. Admits to chronic lower extremity edema. Unable to tolerate compression stockings. Chronically treated with furosemide in the outpatient setting. A 2D transthoracic echocardiogram performed on admission demonstrates preserved LV systolic function, normal wall motion, and mild pulmonary hypertension. Nocturnal pulse ox trend demonstrates hypoxemia. Supplemental oxygen ordered at night. Patient states she was diagnosed with obstructive sleep apnea more than 3 years ago, however, intolerant to CPAP. ECG is normal since admission. Cardiac enzymes are undetectable. Currently the patient is resting comfortably and asymptomatic supine. Voices concern regarding potential stress testing. Denies personal history of coronary disease, congestive heart failure, rheumatic fever as a child, diabetes, or peripheral vascular disease. Admits to mild nonproductive cough which is resolving. Lower extremity edema markedly improved with diuretic therapy since admission. Allergies Allergy/AdvReac Type Severity Reaction Status Date / Time Penicillins Allergy Intermediate Difficulty Verified 10/17/21 15:59 Breathing codeine Allergy Mild NAUSEATED Verified 10/17/21 15:59 morphine AdvReac Mild nausea Verified 10/17/21 15:59 Thioamides Allergy Intermediate Rash Uncoded 10/17/21 15:59 Home Medications Medication Instructions Recorded Confirmed Type baclofen 10 mg tablet 10 mg PO BID 08/18/18 10/17/21 History furosemide 20 mg tablet 20 mg PO QAM 08/18/18 10/17/21 History ondansetron 4 mg disintegrating 4 mg PO TID PRN 08/18/18 10/17/21 History tablet trazodone 50 mg tablet 50 mg PO HS 08/18/18 10/17/21 History brimonidine 0.2 % eye drops 1 drp OPB BID 11/01/19 10/17/21 History celecoxib 100 mg capsule 100 mg PO QAM 11/01/19 10/17/21 History dorzolamide 22.3 mg-timolol 6.8 1 drp OPB BID 11/01/19 10/17/21 History mg/mL eye drops duloxetine 60 mg capsule,delayed 60 mg PO QAM 11/01/19 10/17/21 History release latanoprost 0.005 % eye drops 1 drp OPB HS 11/01/19 10/17/21 History omeprazole 20 mg capsule,delayed 20 mg PO DAILY 11/01/19 10/17/21 History release pregabalin 50 mg capsule (Lyrica) 50 mg PO BID 11/01/19 10/17/21 History acetaminophen 650 mg 1,300 mg PO Q8H PRN 10/17/21 10/17/21 History tablet,extended release aspirin 81 mg tablet,delayed 81 mg PO BID 10/17/21 10/17/21 History release (Aspirin Low Dose) Patient History Medical History (Updated 10/22/21 @ 13:43 by Elmer Escudero DO) Anxiety Cardiac murmur Depression Eye pressure Hypertension Hyperthyroidism HISTORY OF Migraine Osteoarthritis Peripheral neuropathy Transient ischemic attack (TIA) "I THINK I HAVE HAD MINI STROKES BECAUSE I HAVE MEMORY PROBLEMS" LAST EPISODE 6 MONTHS AGO (NOT DX) Surgical History Family history of reaction to anesthesia PONV, SLOW TO WAKE UP No significant past surgical history Family History Mother Family history of diabetes mellitus Grandmother (Maternal) Family hx of colon cancer Social History Smoking Status: Never smoker Second Hand Exposure: Yes; Hx Alcohol Use: No Hx Substance Use: No Preferred Language: [place] Citizen Communication Ability: 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 Beliefs That Will Affect Care: None marital status: Single Current Living Situation: Alone Current Living Situation Comment: [facility] Feels Safe at Home: Yes Safety Concerns: Feels Safe At This Time Assistive Devices: None Assistive Devices Comment: does not use CPAP Review of Systems Review of Systems: All systems reviewed & are unremarkable except as noted in Subjective Physical Exam Constitutional: well nourished and + obese; no acute distress Respiratory: no respiratory distress, no labored breathing and no retractions Auscultation: no crackles, no rales, no rhonchi and no wheezes Cardiovascular: Rate/Rhythm: regular rate and regular rhythm Heart Sounds: normal S1 and normal S2; no murmur Vessels: radial pulses present; no JVD (Difficult to assess due to body habitus.) and no carotid bruit Extremities: + edema (1-2+ bilateral pretibial edema, left greater than right.) Left lower extremity pretibial erythema, 1 cm eschar.. Gastrointestinal (Abdomen): Inspection/Auscultation: abdomen normal to inspection and normal bowel sounds; abdomen not distended Percussion/Palpation: abdomen soft; abdomen nontender, no guarding and abdomen not rigid Neurologic: CN's II-XI intact bilaterally and moves all extremities; no focal motor deficits Motor/Sensory: no tremor Psychiatric: Orientation: oriented x 3 Affect: + anxious affect Results & Data ([facility]) Vital Signs (Past 12 Hours) Vital Signs Temp Pulse Pulse Resp BP BP Pulse Ox 10/22/21 11:08 36.6 C 67 20 114/80 94 10/22/21 07:28 61 10/22/21 06:23 36.5 C 58 L 18 115/72 92 10/22/21 04:20 77 11 L 94 10/22/21 02:59 35.8 C L 60 18 119/72 92 (1) Cellulitis Laterality: left Site of cellulitis: extremity Site of cellulitis of extremity: lower extremity Qualified Code(s): L03.116 - Cellulitis of left lower limb
[2021-10-22] MEDS: traZODone HCL 50 MG TAB PO SCH (20:03)
[2021-10-22] MEDS: LATANOPROST 0.005% OP SOLN 2.5 ML BTL OPB SCH (20:08)
[2021-10-23] MEDS: CLINDAMYCIN 600 MG in DEXTROSE 5% 50 ML IV SCH ×2 (04:10→11:17)
[2021-10-23] MEDS ORDERED: DOBUTamine HCL 12.5 MG/ML 20 ML VIAL IV ONE (08:25)
[2021-10-23] MEDS ORDERED: METOPROLOL TARTRATE 1 MG/ML VIAL IV ONE (08:25)
[2021-10-23] MEDS ORDERED: ATROPINE SULFATE 0.1 MG/ML 10ML SYR IV ONE (08:25)
[2021-10-23 08:37] LABS: BUN Creatinine Ratio 34.9 (10-20); Calcium 8.4 mg/dl (8.5-10.1); Creatinine Clr Calc Pharmacy 124.4 ml/min; Est GFR (Non-African American) 97.5 ml/min; Magnesium 2.4 mg/dl (1.7-2.4); Potassium 3.4 mmol/L (3.5-5.1)
[2021-10-23] MEDS ORDERED: ENOXAPARIN INJ 40 MG/0.4 ML SYR SQ SCH (09:00)
[2021-10-23] MEDS: DORZOLAMIDE/TIMOLOL 22.3/6.8MG/ML 10 ML BTL OPB SCH (10:10)
[2021-10-23] MEDS: ASPIRIN 81 MG ECTAB PO SCH (10:10)
[2021-10-23] MEDS: DOXYCYCLINE HYCLATE 100 MG CAP PO SCH (10:10)
[2021-10-23] MEDS: PREGABALIN 50 MG CAP PO SCH (10:10)
[2021-10-23] MEDS: FUROSEMIDE 40 MG/4 ML VIAL IV SCH (10:10)
[2021-10-23] MEDS: PANTOprazole 40 MG TAB PO SCH (10:11)
[2021-10-23] MEDS: BACLOFEN 10 MG TAB PO SCH (10:11)
[2021-10-23] MEDS: BRIMONIDINE TARTRATE 0.2% 5ML OPB SCH (10:11)
[2021-10-23] MEDS: DULoxetine HCL 60 MG CAP PO SCH (10:11)
[2021-10-23] MEDS: FLUTICASONE/VILANTEROL 100/25MCG 14 PUFFS/INHALER INH SCH (10:12)
[2021-10-23] MEDS: predniSONE 20 MG TAB PO SCH (10:12)
--- NOTE | 2021-10-23 14:14 | Hospitalist Progress Note ---
Date of Service October 23, 2021 Assessment & Plan (1) Dyspnea: (2) Cellulitis: Plan: ASSESSMENT AND PLAN: This 61-year-old female presents with ongoing shortness of breath with exertion as well as left lower extremity cellulitis. 1. Shortness of breath on exertion, hypoxia on exertion: Possible Mild COPD/Asthma exacerbation, Acute Sinusitis, Acute Bronchitis Acute diastolic CHF exacerbation, mild; pulmonary Hypertension, mild-no diagnosis breathing is improving, but reporting central chest pressure with exertion Continue doxycycline, prednisone- taper, nebs, Breo Echo: Grade 1 diastolic dysfunction, mild pulmonary hypertension continue Lasix IV daily will get troponin stat, ekg consult Cardiology Nocturnal pulse extremity: Patient needs 2 L of oxygen via nasal cannula while sleeping As per patient, she has been diagnosed with obstructive sleep apnea 3 years ago but has not been tolerating the mask CPAP ordered Will need at least nocturnal oxygen supplement upon discharge [facility] to be [facility] with proper CPAP mask CT of the chest, no pulmonary embolism. Doppler, no deep venous thrombosis. 2. Left lower extremity cellulitis. -- IV clindamycin. The patient has severe allergy to penicillins. --Gradually improving Continue IV clindamycin 3. History of generalized anxiety disorder and depression: -- Continue duloxetine. 4. History of hereditary and idiopathic peripheral neuropathy. -- Continue pregabalin. 5. Glaucoma: Continue her home eyedrops. 6. Osteoarthritis: Continue her home pain medications. 7. Morbid obesity:Counseling performed 8. Chronic lower extremity venous insufficiency: On Lasix. 9. Deep venous thrombosis prophylaxis: Lovenox. DISPOSITION: anticipate d/c home when medically stable, hopefully tomorrow plan of care discussed with patient in detail and at length all questions answered she is understanding, agreeable, comfortable with the plan of care Admission and Anticipated Discharge Date Admission Date: October 17, 2021 Subjective ff up for dyspnea on exertion, acute bronchitis, diastolic CHF- new diagnosis, etc seen resting in bed, not in distress reports central chest pressure, worse with exertion non radiating, no nausea/vomiting, diaphoresis breathing is improving leg pain also improving no other symptoms Results & Data Results & Data ([facility]) Vital Signs (Past 12 Hours) Vital Signs Temp Pulse Pulse Pulse Resp BP Pulse Ox 10/23/21 11:24 36.6 C 71 19 124/89 94 10/23/21 08:39 36.6 C 71 18 133/77 94 10/23/21 07:18 64 10/23/21 03:56 36.7 C 64 20 103/66 96 10/23/21 03:55 63 Pulse Ox 10/23/21 11:24 10/23/21 08:39 10/23/21 07:18 10/23/21 03:56 10/23/21 03:55 91 Laboratory Results BMP 10/23/21 07:43 Sodium 140 Potassium 3.4 L Chloride 100 Carbon Dioxide 32 BUN 22 Creatinine 0.63 Glucose 92 Calcium 8.4 L Cardiac Enzymes 10/22/21 Range/Units 15:50 Troponin I < 0.03 (0-0.04) ng/ml Medications Administered Current Inpatient Medications Acetaminophen (Acetaminophen 325 Mg Tab) 650 mg PO Q4H PRN PRN Reason: Pain or Fever Stop: 11/16/21 23:35 Last Admin: 10/18/21 20:17 Dose: 650 mg Documented by: Aspirin (Aspirin 81 Mg Ectab) 81 mg PO BID [facility] Stop: 11/16/21 23:35 Last Admin: 10/23/21 10:10 Dose: 81 mg Documented by: Baclofen (Baclofen 10 Mg Tab) 10 mg PO BID [facility] Stop: 11/16/21 23:35 Last Admin: 10/23/21 10:11 Dose: 10 mg Documented by: Brimonidine Tartrate (Brimonidine Tartrate 0.2% 5ml) 1 drops OPB BID [facility] Stop: 11/16/21 23:34 Last Admin: 10/23/21 10:11 Dose: 1 drops Documented by: Dorzolamide/Timolol (Dorzolamide/Timolol 22.3/6.8mg/Ml 10 Ml Btl) 1 drops OPB BID [facility] Stop: 11/16/21 23:35 Last Admin: 10/23/21 10:10 Dose: 1 drops Documented by: Doxycycline Hyclate (Doxycycline Hyclate 100 Mg Cap) 100 mg PO BID [facility] Stop: 10/28/21 12:14 Last Admin: 10/23/21 10:10 Dose: 100 mg Documented by: Duloxetine HCl (Duloxetine Hcl 60 Mg Cap) 60 mg PO QAM [facility] Stop: 11/17/21 08:59 Last Admin: 10/23/21 10:11 Dose: 60 mg Documented by: Enoxaparin Sodium (Enoxaparin Inj 40 Mg/0.4 Ml Syr) 40 mg SQ DAILY [facility] Stop: 11/22/21 08:59 Last Admin: 10/23/21 10:09 Dose: 40 mg Documented by: Fluticasone/Vilanterol (Fluticasone/Vilanterol 100/25mcg 14 Puffs/Inhaler) 1 puffs INH DAILY [facility] Stop: 11/19/21 10:59 Last Admin: 10/23/21 10:12 Dose: 1 puffs Documented by: Furosemide (Furosemide 40 Mg Tab) 40 mg PO QAM [facility] Stop: 11/19/21 08:59 Last Admin: 10/20/21 08:07 Dose: 40 mg Documented by: Furosemide (Furosemide 40 Mg/4 Ml Vial) 40 mg IV BID [facility] Stop: 11/20/21 09:59 Last Admin: 10/23/21 10:10 Dose: 40 mg Documented by: Clindamycin Phosphate 600 mg/ (Dextrose) 54 mls @ 100 mls/hr IV Q8H [facility] Stop: 10/24/21 20:15 Last Infusion: 10/23/21 11:52 Dose: Infused Documented by: Ipratropium Shelly (Ipratropium Shelly Neb Soln 0.02% 2.5 Ml Vial) 0.5 mg INH Q6R PRN PRN Reason: Shortness Of Breath Or Wheezing Stop: 11/17/21 11:59 Last Admin: 10/19/21 17:15 Dose: 0.5 mg Documented by: Latanoprost (Latanoprost 0.005% Op Soln 2.5 Ml Btl) 1 drops OPB HS [facility] Stop: 11/16/21 23:35 Last Admin: 10/22/21 20:08 Dose: 1 drops Documented by: Levalbuterol HCl (Levalbuterol 1.25mg/0.5ml Neb) 1.25 mg INH Q6R PRN PRN Reason: Shortness Of Breath Or Wheezing Stop: 11/17/21 11:59 Last Admin: 10/19/21 17:15 Dose: 1.25 mg Documented by: Nitroglycerin (Nitroglycerin Sl 0.4 Mg/Tab Tab) 0.4 mg SL UD PRN PRN Reason: Chest Pain Stop: 11/16/21 23:35 Ondansetron HCl (Ondansetron 4 Mg Od Tab) 4 mg PO TID PRN PRN Reason: Nausea Stop: 11/16/21 23:35 Pantoprazole Sodium (Pantoprazole 40 Mg Tab) 40 mg PO DAILY [facility] Stop: 11/17/21 08:59 Last Admin: 10/23/21 10:11 Dose: 40 mg Documented by: Prednisone (Prednisone 20 Mg Tab) 20 mg PO DAILY [facility] Stop: 11/21/21 08:59 Last Admin: 10/23/21 10:12 Dose: 20 mg Documented by: Pregabalin (Pregabalin 50 Mg Cap) 50 mg PO BID [facility] Stop: 11/16/21 23:35 Last Admin: 10/23/21 10:10 Dose: 50 mg Documented by: Trazodone HCl (Trazodone Hcl 50 Mg Tab) 50 mg PO HS [facility] Stop: 11/16/21 23:35 Last Admin: 10/22/21 20:03 Dose: 50 mg Documented by: (1) Dyspnea Dyspnea type: dyspnea on exertion Qualified Code(s): R06.00 - Dyspnea, unspecified (2) Cellulitis Laterality: left Site of cellulitis: extremity Site of cellulitis of extremity: lower extremity Qualified Code(s): L03.116 - Cellulitis of left lower limb
--- NOTE | 2021-10-23 14:43 | Cardiology Progress Note ---
Date of Service October 23, 2021 Assessment & Plan (1) Chest pressure: (2) Pulmonary HTN: (3) OSEAS (obstructive sleep apnea): (4) Nocturnal hypoxemia: (5) Cellulitis: Plan: Results of dobutamine stress echo discussed. No evidence of inducible ischemia. Patient reassured. No further inpatient cardiac testing at this time. There is evidence of mild pulmonary hypertension which I suspect is on the basis of obstructive sleep apnea/obesity hypoventilation syndrome and documented nocturnal hypoxemia. Patient reports intolerance to CPAP. Continue supplemental oxygen nightly. Consider outpatient polysomnography/sleep medicine evaluation. Lower extremity cellulitis/edema improving. Continue intravenous furosemide. Monitor GFR, electrolytes, and fluid balance. Supplement electrolytes as needed. Cardiology will sign off. Please call with questions. Admission and Anticipated Discharge Date Admission Date: October 17, 2021 Subjective Patient seen and examined at the bedside. Feeling well this afternoon. Dobutamine stress echo negative for inducible ischemia. No recurrent chest discomfort. Telemetry reveals sinus rhythm. Review of Systems Review of Systems: All systems reviewed & are unremarkable except as noted in Subjective Physical Exam Constitutional: well nourished and + obese; no acute distress Respiratory: no respiratory distress, no labored breathing and no retractions Cardiovascular: Rate/Rhythm: regular rate and regular rhythm Vessels: r adial pulses present; no JVD (Difficult to assess due to body habitus.) and no carotid bruit Extremities: + edema (1-2+ bilateral pretibial edema, left greater than right.) Gastrointestinal (Abdomen): Inspection/Auscultation: abdomen normal to inspection and normal bowel sounds; abdomen not distended Pe rcussion/Palpation: abdomen soft; abdomen nontender, no guarding and abdomen not rigid Neurologic: CN's II-XI intact bilaterally and moves all extremities; no focal motor deficits Motor/Sensory: no tremor Psychiatric: Orientation: oriented x 3 Affect: + anxious affect Results & Data ([facility]) Vital Signs (Past 12 Hours) Vital Signs Temp Pulse Pulse Pulse Resp BP Pulse Ox 10/23/21 11:24 36.6 C 71 19 124/89 94 10/23/21 08:39 36.6 C 71 18 133/77 94 10/23/21 07:18 64 10/23/21 03:56 36.7 C 64 20 103/66 96 10/23/21 03:55 63 Pulse Ox 10/23/21 11:24 02/23/22 08:39 10/23/21 07:18 10/23/21 03:56 10/23/21 03:55 91 (1) Cellulitis Laterality: left Site of cellulitis: extremity Site of cellulitis of extremity: lower extremity Qualified Code(s): L03.116 - Cellulitis of left lower limb
--- NOTE | 2021-10-23 16:36 | Discharge Summary ---
Date of Service October 23, 2021 Admission HPI Per Admitting Provider HISTORY OF PRESENT ILLNESS: This is a 61-year-old female with past medical history significant for chronic venous insufficiency of lower extremity, morbid obesity, generalized osteoarthritis, hereditary and idiopathic peripheral neuropathy, history of glaucoma, history of bilateral knee replacement, generalized anxiety disorder, depression. Presents with ongoing shortness of breath for several months, but last two to three weeks it got progressively worsened and last couple of weeks she also developed erythema and swelling in the left lower extremity and last 2 to 3 days, she developed sore throat, runny nose, feeling like low-grade temperature and some greenish yellow sputum with cough. She did not receive COVID booster and she did not receive flu vaccine and that is the reason she came to the ER. In the ER, workup for COVID was negative. Flu and RSV was negative. D-dimer was elevated at 1210. CT of the chest, no PE, no acute findings. Venous Doppler, no DVT. Hemodynamically stable. When the patient is resting, she is doing fine, but with exertion, her oxygen saturation is dropping down to 80s. So we were called for admission. The patient currently denies any headache. No blurred visions. Has some runny nose, sore throat, and cough. Appetite is down. No chest pain. Shortness of breath on exertion, not able to walk much. Some slight nausea. No abdominal pain, no diarrhea or constipation, no blood in stools or black stools. Normal bladder movements. Admission Exam Per Admitting Provider PHYSICAL EXAMINATION: GENERAL: The patient is morbidly obese, currently not in acute distress. VITAL SIGNS: Temperature 36.7, pulse 66, respiratory rate 15, blood pressure 128/65, oxygen is 90% on room air. HEENT: Pupils equal, round and reactive to light. Oral mucosa moist. NECK: No JVD, no neck masses. CARDIOVASCULAR: S1 and S2 heard. Regular rate and rhythm. No murmur, no gallop. RESPIRATORY SYSTEM: Normal AP diameter. No accessory muscle use. No wheezing, no crackles. ABDOMEN: Soft, bowel sounds present, nontender, no distention. CENTRAL NERVOUS SYSTEM: Cranial nerves II through XII are grossly intact, nonfocal. EXTREMITIES: Bilateral lower extremity edema present. Left lower extremity is erythematous and swollen. Principal Diagnosis Pulmonary Hypertension OSEAS-untreated Nocturnal hypoxia LLE cellulitis Chest pressure Possible acute diastolic heart failure exacerbation Acute sinusitis Discharge Exam CONSTITUTIONAL: WNWD, vitals as above, generally well-appearing, NAD EYES: normal conjunctivae, no scleral icterus ENT: external ear and nose normal, NECK: trachea midline, RESPIRATORY: clear to auscultation bilaterally, no crackles, rales or wheezes, normal respiratory effort CARDIOVASCULAR: regular rate and rhythm, S1 and 2 heard without murmurs, gallops or rubs, no JVD, no peripheral edema CHEST: inspection of chest was normal GASTROINTESTINAL: soft, nontender, ND, no guarding MUSCULOSKELETAL: strength 5/5 throughout, head is normocephalic and atraumatic, SKIN: warm and dry, NEUROLOGIC: CN 2-12 grossly intact, no sensory deficit, normal cognition, normal speech, no tremor, no gross focal deficits. PSYCHIATRIC: alert cooperative and oriented to person, place and time. Discharge Data Allergies Allergy/AdvReac Type Severity Reaction Status Date / Time Penicillins Allergy Intermediate Difficulty Verified 10/17/21 15:59 Breathing codeine Allergy Mild NAUSEATED Verified 10/17/21 15:59 morphine AdvReac Mild nausea Verified 10/17/21 15:59 Thioamides Allergy Intermediate Rash Uncoded 10/17/21 15:59 Consultations 10/22/21 09:16 Consult Cardiology Routine Ordered Studies Laboratory Results WBC 8.35 K/uL (4.8-10.8) 10/20/21 06:57 RBC 4.51 M/uL (4.2-5.4) 10/20/21 06:57 Hgb 12.9 g/dL (12.0-16.0) 10/20/21 06:57 Hct 41.8 % (37-47) 10/20/21 06:57 MCV 92.7 fL (80-100) 10/20/21 06:57 MCH 28.6 pg (25-34) 10/20/21 06:57 MCHC 30.9 g/dL (32-36) L 10/20/21 06:57 RDW Std Deviation 52.6 fL (36.4-46.3) H 10/20/21 06:57 RDW Coeff of Allison 15.6 % (11.5-14.5) H 10/20/21 06:57 Plt Count 226 K/uL (130-400) 10/20/21 06:57 MPV 11.5 fL (7.4-10.4) H 10/20/21 06:57 Immature Gran % (Auto) 0.3 % 10/18/21 05:46 Neut % (Auto) 53.1 % 10/18/21 05:46 Lymph % (Auto) 24.6 % 10/18/21 05:46 [place] % (Auto) 10.1 % 10/18/21 05:46 Eos % (Auto) 11.0 % 10/18/21 05:46 Baso % (Auto) 0.9 % 10/18/21 05:46 Neut # (Auto) 3.64 K/uL (1.4-6.5) 10/18/21 05:46 Lymph # (Auto) 1.68 K/uL (1.2-3.4) 10/18/21 05:46 [place] # (Auto) 0.69 K/uL (0.11-0.59) H 10/18/21 05:46 Eos # (Auto) 0.75 K/uL (0-0.5) H 10/18/21 05:46 Baso # (Auto) 0.06 K/uL (0-0.2) 10/18/21 05:46 Immature Gran # (Auto) 0.02 K/uL (0.00-0.02) 10/18/21 05:46 D-Dimer 1210 ug/L FEU (0-500) H* 10/17/21 14:24 Sodium 140 mmol/L (136-145) 10/23/21 07:43 Potassium 3.4 mmol/L (3.5-5.1) L 10/23/21 07:43 Chloride 100 mmol/L (98-107) 10/23/21 07:43 Carbon Dioxide 32 mmol/L (21-32) 10/23/21 07:43 Anion Gap 8 (3-11) 10/23/21 07:43 BUN 22 mg/dl (6-23) 10/23/21 07:43 Creatinine 0.63 mg/dl (0.6-1.2) 10/23/21 07:43 Est Cr Clr Drug Dosing 124.4 ml/min 10/23/21 07:43 Est GFR ( Amer) 113.0 ml/min 10/23/21 07:43 Est GFR (Non-Af Amer) 97.5 ml/min 10/23/21 07:43 BUN/Creatinine Ratio 34.9 (10-20) H 10/23/21 07:43 Glucose 92 mg/dl (70-99(Fasting)) 10/23/21 07:43 Calcium 8.4 mg/dl (8.5-10.1) L 10/23/21 07:43 Magnesium 2.4 mg/dl (1.7-2.4) 10/23/21 07:43 Total Bilirubin 0.7 mg/dl (0.2-1.0) 10/17/21 14:24 AST 22 U/L (13-39) 10/17/21 14:24 ALT 17 U/L (7-52) 10/17/21 14:24 Alkaline Phosphatase 62 U/L (34-104) 10/17/21 14:24 Troponin I < 0.03 ng/ml (0-0.04) 10/22/21 15:50 Total Protein 6.8 gm/dl (6.0-8.3) 10/17/21 14:24 Albumin 4.0 gm/dl (3.4-5.0) 10/17/21 14:24 Globulin 2.8 gm/dl (2.5-4.0) 10/17/21 14:24 Albumin/Globulin Ratio 1.4 (0.9-2) 10/17/21 14:24 TSH 1.593 uIu/ml (0.300-4.500) 10/17/21 14:24 SARS-CoV-2 (PCR) NEGATIVE (Negative) 10/17/21 15:50 Influenza Type A (PCR) Negative (Neg) 10/17/21 15:50 Influenza Type B (PCR) Negative (Neg) 10/17/21 15:50 RSV (RT-PCR) Negative (Neg) 10/17/21 15:50 Impressions Venous Doppler Study 10/17/21 14:00 ULTRASOUND LEFT LOWER EXTREMITY VENOUS CLINICAL HISTORY: Left leg pain and swelling. COMPARISON STUDY: Bilateral lower extremity venous ultrasound dated 02/07/2007. TECHNIQUE: Real-time, grayscale, and color Doppler sonography of the deep veins of the left lower extremity was performed from the inguinal crease to the calf. Compression and augmentation were utilized. FINDINGS: There is no sonographic evidence of deep venous thrombosis identified in the left lower extremity. The common femoral, superficial femoral, and popliteal veins are patent and normally compressible. The greater saphenous vein and the profunda femoris vein at the junction with the common femoral vein are clear. The visualized calf veins are patent. Soft tissue edema is noted in the calf. IMPRESSION: There is no sonographic evidence of deep venous thrombosis identified in the left lower extremity. ACT 112: Negative or not required by law. Electronically signed by: Kenny Ware M.D. 10/17/2021 5:22 PM Chest CTA 10/17/21 15:06 CT angio chest PE protocol CLINICAL HISTORY: PE TECHNIQUE: Multidetector row helical CT of the chest was performed with angiographic protocol. Coronal and sagittal reformations were obtained. Coronal and sagittal MIPS were obtained from the axial data set and were submitted for review. Automated dose lowering techniques and/or adjustment according to patient size were utilized for this exam. Comparison: None available at the time of this dictation. FINDINGS: Lungs and pleura: Normal. Heart and pericardium: Heart size is normal. No pericardial effusion. Vessels: No evidence of pulmonary embolism. Mediastinum and saadia: Unremarkable. Chest wall and lower neck: Unremarkable. Abdomen: Unremarkable. Bones: Unremarkable. IMPRESSION: No evidence of pulmonary embolism. ACT 112: Negative or not required by law. Electronically signed by: Dashawn Hansen M.D. 10/17/2021 4:19 PM Hospital Course (1) Cellulitis of left lower extremity: (2) Pulmonary HTN: (3) Nocturnal hypoxemia: 61-year-old female presented to the ER with shortness of breath chest pain and leg swelling for 4 days. She reported more shortness of breath and fatigue over the last 2 to 3 weeks. Patient was noted to have a left lower extremity cellulitis and was started on Bactrim. D-dimer returned elevated over thousand however both Doppler and CT of the chest were negative for a blood clot. Covid, influenza and RSV testing were negative. Chest imaging revealed no evidence of focal infiltrate, pleural effusion or CHF noted on CT. She was well-appearing at rest and hemodynamically stable. With any movement she was noted to become tachypneic and dyspneic. Her oxygen saturation dropped to 85% while ambulating on room air. She also had increased respiratory distress with this. Given her symptoms she was admitted to the hospitalist service for further work-up and evaluation. A nocturnal pulse ox study revealed nocturnal hypoxia. An echocardiogram was performed revealing an ejection fraction of 66 5% with mild concentric left ventricular hypertrophy. She did have evidence of pulmonary hypertension with a pulmonary systolic pressure of 45 mmHg. This was new in comparison to prior echocardiogram in July 2016. She was considered to have a possible COPD/asthma exacerbation versus acute sinusitis versus acute bronchitis and was started on doxycycline, prednisone and nebulizer treatments. She did receive an increased dose of Lasix and was intermittently given intravenous Lasix out of consideration for possible acute diastolic CHF exacerbation. Intravenous clindamycin was continued for her lower extremity cellulitis and she continued to improve with medical therapy. Notably as per patient she had been diagnosed with obstructive sleep apnea 3 years ago but not been able to tolerate the mask as prescribed. Dobutamine stress echocardiogram was performed for further evaluation of her recent chest pressure symptoms. There was no evidence of inducible ischemia and no further inpatient cardiac testing was recommended. The new mild pulmonary hypertension was suspected secondary to obstructive sleep apnea/obesity hypoventilation syndrome and documented nocturnal hypoxemia. Outpatient polysomnogram/sleep medicine evaluation was recommended. She was started on nocturnal oxygen supplementation. At time of discharge she was hemodynamically stable and afebrile and tolerating p.o. She was mentating and ambulating at baseline and discharged to home in stable condition with close primary care follow-up recommended Total Time Total Time Spent Total Time Spent (In Minutes): 60 Discharge Plan Discharge Items Patient Disposition: Home - Self-Care Reason For Visit: SOB Discharge Diagnosis: Pulmonary Hypertension OSEAS-untreated Nocturnal hypoxia LLE cellulitis Chest pressure Possible acute diastolic heart failure exacerbation Acute sinusitis Condition on Discharge: Good Activity: Resume your previous activity Non-emergency contact: Primary Care Provider Call non-emergency contact if: you have any medication questions, your symptoms worsen, your pain is not controlled, your pain is worsening, your pain is unusual for you and your pain is concerning for you Follow-up/Referrals: Linda Watkins MD [Primary Care Provider] - (Date & Time 10/25/2021 9:00 AM Provider Linda Maciel MD Department General Internal Medicine [facility] ) Diet: Low Sodium (2gm) Addtl Attending Provider Instructions: Please take all medications as instructed on discharge list below. You are being given another couple of days of antibiotics to complete the regimen for your sinus infection and leg cellulitis. You were given steroids during this admission, we will not continue this now. You were found to have low oxygen levels when you sleep and are being sent home with oxygen to use at night or when you are sleeping. This should be delivered to your home tomorrow. A followup with sleep medicine is recommended for a repeat sleep study and to fit you with a new CPAP mask that works. Please continue all efforts for lifestyle modifications to increase your lean muscle mass and decrease overall percent body fat. You underwent a dobutamine stress echo while in the hospital which was negative for inducible ischemia. You also underwent a chest CT scan revealing no evidence of blood clot in your lungs, pneumonia or other acute process to explain your symptoms. There are many other reasons for your chest pressure and exertional shortness of breath, which may be explored in the outpatient setting. Please consider baseline pulmonary function tests (PFTs), and doubling your dose of omeprazole for possible worsening acid reflux. Please followup with your primary care physician as instructed in two days time for further discussion and investigation as appropriate. It was a pleasure taking care of you! Please call if you have any questions or problems. You can reach a [facility] hospitalist on duty at [facility] 24 hours a day by calling [phone]. Take care of yourself. Dianna Jolly, DO [facility] Hospitalist Pending Studies at Discharge: No Stand-Alone Forms: My [facility], Work/School Release Medications and DC Order Prescriptions: New doxycycline hyclate 100 mg Capsule 100 mg PO BID Qty: 6 RF: 0 clindamycin HCl 150 mg capsule 450 mg PO Q8H Qty: 27 RF: 0 Continued trazodone 50 mg Tablet 50 mg PO HS RF: 0 baclofen 10 mg Tablet 10 mg PO BID RF: 0 furosemide 20 mg Tablet 20 mg PO QAM RF: 0 ondansetron 4 mg Tablet,Disintegrating 4 mg PO TID PRN (Reason: Nausea) RF: 0 latanoprost 0.005 % drops 1 drp OPB HS RF: 0 brimonidine 0.2 % drops 1 drp OPB BID RF: 0 dorzolamide-timolol 22.3-6.8 mg/mL drops 1 drp OPB BID RF: 0 duloxetine 60 mg capsule,delayed release(DR/EC) 60 mg PO QAM RF: 0 pregabalin [Lyrica] 50 mg Capsule 50 mg PO BID RF: 0 celecoxib 100 mg capsule 100 mg PO QAM RF: 0 aspirin [Aspirin Low Dose] 81 mg Tablet,Delayed Release (Dr/Ec) 81 mg PO BID RF: 0 acetaminophen 650 mg Tablet Extended Release 1,300 mg PO Q8H PRN (Reason: Pain) RF: 0 Changed omeprazole 20 mg capsule,delayed release(DR/EC) 20 mg PO BID Qty: 60 RF: 0 Discharge Orders: Discharge Order (Routine); Ordered 10/23/21 Ordered By: Dianna Jolly Admission Data Admit Date/Time: 10/17/21 20:13 Attending Provider: Dianna Jolly Admit Provider: James Loredo Primary Care Provider: Linda Watkins Other Providers: Elmer Escudero Other Interventions: Discharge Summary Assessment (RN) Last Done: 10/23/21 17:00
== END 2021-10-23 17:34 | disposition home or self-care (01) | DRG 602 ==
LOC: ED 13:14 → 2W 20:13 → SUATTDRO 20:13 → 2W 22:41